=== PATIENT | male | born 1945 | race African-American/Black ===

== ENCOUNTER 2018-04-07 17:00 | Inpatient (IN) | payer BC, MEDICARE, OTHER ==
[~2018-04-07] VITALS: Ht 172.7 cm; Wt 65.0 kg
[2018-04-07] MEDS ORDERED: IV NORMAL SALINE 1000ML BAG 1,000 ML IV SCH (17:25)
[2018-04-07 17:38] LABS: BASO % 1 % (0-3); EOS % 0 % (0-3); HEMATOCRIT 35.2 % (39.0-53.0); HEMOGLOBIN 12.2 g/dL (13.0-17.5); LYMPH # 1.3 x10^3/uL (1.0-4.8); LYMPH % 27 % (24-48); MEAN CORPUSCULAR HEMOGLOBIN 30 pg (25-35); MEAN CORPUSCULAR HGB CONC 35 g/dL (31-37); MEAN CORPUSCULAR VOLUME 88 fL (79-100); MONO # 0.3 x10^3/uL (0.0-1.1); MONO % 6 % (0-9); NEUT # 3.1 x10^3uL (1.8-7.7); NEUT % 66 % (31-73); PLATELET COUNT 277 x10^3/uL (140-400); RED BLOOD COUNT 4.02 x10^6/uL (4.30-5.70); RED CELL DISTRIBUTION WIDTH 15.2 % (11.5-14.5); WHITE BLOOD COUNT 4.7 x10^3/uL (4.0-11.0)
--- NOTE | 2018-04-07 17:53 | PHYS DOC ---
Past Medical History Past Medical History: Dementia, Other Additional Past Medical Histor: pt poor historian Past Surgical History: Tonsillectomy, Other Additional Past Surgical Histo: pt poor historian Alcohol Use: None Drug Use: None Adult General Chief Complaint Chief Complaint: ALTERED MENTAL STATUS HPI HPI Patient is a 72-year-old male who presents to the emergency department for evaluation. EMS was called because the patient's caregiver and family reportedly was able to care for the patient at home anymore, due to his dementia and reported episodes of altered mental status. The patient's blood sugar was also reported to be over 400 by EMS. The patient himself denies any complaints. He is oriented to person, but disoriented to place and time. He answers most questions with confabulation. He denies any pain, does not have any evidence of recent trauma or focal neurologic deficit. He is able to move all extremities. There are no alleviating or exacerbating factors to his symptoms. Review of Systems Review of Systems Unable to obtain review of systems secondary to dementia Current Medications Current Medications Current Medications Medications (Trade) Dose Ordered Sig/Constance Start Time Stop Time Status Last Admin Dose Admin Sodium Chloride 1,000 ml @ 1,000 mls/hr Q1H 04/07/18 17:25 04/07/18 18:24 Allergies Allergies Allergies Coded Allergies Type Severity Reaction Last Updated Verified No Known Drug Allergies 04/07/18 No Physical Exam Physical Exam PHYSICAL EXAM: CONSTITUTIONAL: Well developed, well nourished HEAD: normocephalic, atraumatic EENT: PERRL, EOMI. Conjunctivae normal color, sclerae non-icteric; mildly dry mucous membranes. NECK: Supple, non-tender; no meningismus. LUNGS: Lungs CTA, breathing even and unlabored. Normal air movement. HEART: Regular rate and rhythm, no murmur CHEST: No deformity; non-tender ABDOMEN: The abdomen is soft, and non-tender, no masses or bruits. EXTREM: Normal ROM; no deformity, no calf tenderness. Normal pulses palpable in all extremities. There is no pedal edema. SKIN: No rash; no diaphoresis NEURO: Alert; normal speech, impaired cognition consistent with underlying dementia, patient moves all extremities. Current Patient Data Vital Signs Vital Signs Date Time Temp Pulse Resp B/P (MAP) Pulse Ox O2 Delivery O2 Flow Rate FiO2 10/23/18 17:08 98.6 68 20 173/77 (109) 100 98.6 Lab Values Laboratory Tests Test 04/07/18 17:10 White Blood Count 4.7 x10^3/uL (4.0-11.0) Red Blood Count 4.02 x10^6/uL (4.30-5.70) L Hemoglobin 12.2 g/dL (13.0-17.5) L Hematocrit 35.2 % (39.0-53.0) L Mean Corpuscular Volume 88 fL (79-100) Mean Corpuscular Hemoglobin 30 pg (25-35) Mean Corpuscular Hemoglobin Concent 35 g/dL (31-37) Red Cell Distribution Width 15.2 % (11.5-14.5) H Platelet Count 277 x10^3/uL (140-400) Neutrophils (%) (Auto) 66 % (31-73) Lymphocytes (%) (Auto) 27 % (24-48) Monocytes (%) (Auto) 6 % (0-9) Eosinophils (%) (Auto) 0 % (0-3) Basophils (%) (Auto) 1 % (0-3) Neutrophils # (Auto) 3.1 x10^3uL (1.8-7.7) Lymphocytes # (Auto) 1.3 x10^3/uL (1.0-4.8) Monocytes # (Auto) 0.3 x10^3/uL (0.0-1.1) Eosinophils # (Auto) 0.0 x10^3/uL (0.0-0.7) Basophils # (Auto) 0.0 x10^3/uL (0.0-0.2) Sodium Level 138 mmol/L (136-145) Potassium Level 4.6 mmol/L (3.5-5.1) Chloride Level 102 mmol/L (98-107) Carbon Dioxide Level 25 mmol/L (21-32) Anion Gap 11 (6-14) Blood Urea Nitrogen 36 mg/dL (8-26) H Creatinine 2.2 mg/dL (0.7-1.3) H Estimated GFR (Cockcroft-Gault) 29.5 BUN/Creatinine Ratio 16 (6-20) Glucose Level 475 mg/dL (70-99) H Calcium Level 10.1 mg/dL (8.5-10.1) Total Bilirubin Pending Aspartate Amino Transferase (AST) Pending Alanine Aminotransferase (ALT) Pending Alkaline Phosphatase Pending Total Protein Pending Albumin Pending Albumin/Globulin Ratio Pending Acetone Level Pending Laboratory Tests 04/07/18 17:10 Laboratory Tests 04/07/18 17:10 EKG EKG [] Radiology/Procedures Radiology/Procedures [] Course & Med Decision Making Course & Med Decision Making Pertinent Labs and Imaging studies reviewed. (See chart for details) [6:00 PM: Patient's condition remained stable. His creatinine is noted to be elevated as is his blood sugar. I do not have any old labs for comparison. The patient be admitted to the hospitalist. Dragon Disclaimer Dragon Disclaimer This electronic medical record was generated, in whole or in part, using a voice recognition dictation system. Departure Departure Impression: Primary Impression: Dementia Additional Impressions: Hyperglycemia Renal failure Disposition: ADMITTED INPATIENT Admitting Physician: Fuad Junior Condition: STABLE Problem Qualifiers TRACY IBRAHIM MD Apr 07, 2018 17:53
[2018-04-07 17:55] LABS: ANION GAP 11 (6-14); BLOOD UREA NITROGEN 36 mg/dL (8-26); BUN/CREATININE RATIO 16 (6-20); CALCIUM 10.1 mg/dL (8.5-10.1); CARBON DIOXIDE 25 mmol/L (21-32); CHLORIDE 102 mmol/L (98-107); CREATININE 2.2 mg/dL (0.7-1.3); GFR 29.5; GLUCOSE 475 mg/dL (70-99); POTASSIUM 4.6 mmol/L (3.5-5.1); SODIUM 138 mmol/L (136-145)
[2018-04-07 18:02] LABS: ALBUMIN 3.9 g/dL (3.4-5.0); ALK PHOS 118 U/L (46-116); ALT (SGPT) 24 U/L (16-63); AST (SGOT) 13 U/L (15-37); TOTAL BILIRUBIN 0.7 mg/dL (0.2-1.0); TOTAL PROTEIN 7.7 g/dL (6.4-8.2)
[2018-04-07 18:03] LABS: ACETONE NEG (NEG)
--- NOTE | 2018-04-07 18:10 | PDOC1 ---
History and Physical Date of Admission Date of Admission DATE: 04/07/18 TIME: 18:10 Identification/Chief Complaint Chief Complaint seen in er 72-year-old male who presents , EMS was called because the patient's caregiver and family reportedly was able to care for the patient at home. due to his dementia and reported episodes of altered mental status. blood sugar was also reported to be over 400 by EMS. The patient himself denies any complaints. disoriented to place and time. He answers most questions with confabulation. He denies any pain, does not have any evidence of recent trauma or focal neurologic deficit. He is able to move all extremities. There are no alleviating or exacerbating factors to his symptoms. he is up ambulatory, confused in er room and needs a sitter, high fall risk Past Medical History Past Medical History Past Medical History: Dementia, Other Additional Past Medical Histor: pt poor historian, diabetes Past Surgical History: Tonsillectomy, Other Additional Past Surgical Histo: pt poor historian Alcohol Use: None Drug Use: None lives with girlfriend, she has been unable to care for him due to inc confusion Cardiovascular: Hyperlipidemia Renal/: No pertinent hx Endocrine: Diabetes Family History Family History: Hypertension Family History: Parent Social History Smoke: No ALCOHOL: none Drugs: None Current Problem List Problem List Problems Medical Problems: (1) Dementia Status: Acute (2) Hyperglycemia Status: Acute (3) Renal failure Status: Acute Current Medications Current Medications Current Medications Sodium Chloride 1,000 ml @ 1,000 mls/hr Q1H IV ; Start 04/07/18 at 17:25; Stop 04/07/18 at 18:24 Allergies Allergies: Coded Allergies: No Known Drug Allergies (Unverified , 04/07/18) ROS Review of System 14 pt ros otherwise neg General: No: Chills, Night Sweats, Fatigue, Malaise, Appetite, Other PSYCHOLOGICAL ROS: YES: Concentration difficultie Eyes: No Blurry vision, No Decreased vision, No Double vision, No Dry eyes, No Excessive tearing, No Eye Pain, No Itchy Eyes, No Loss of vision, No Photophobia , No Scotomata, No Uses contacts, No Uses glasses, No Other HEENT: No: Heacaches, Visual Changes, Hearing change, Nasal congestion, Nasal discharge, Oral lesions, Sinus pain, Sore Throat, Epistaxis, Sneezing, Snoring, Tinnitus, Vertigo, Vocal changes, Other ENDOCRINE: No: Breast Changes, Galactorrhea, Hair Pattern Changes, Hot Flashes , Malaise/lethargy, Mood Swings, Palpitations, Polydipsia/polyuria, Skin Changes , Temperature Intolerance, Unexpected Weight Changes, Other Respiratory: No: Cough, Hemoptysis, Orthopnea, Pleuritic Pain, Shortness of breath, SOB with excertion, Sputum Changes, Stridor, Tachypnea, Wheezing, Other Cardiovascular: No Chest Pain, No Palpitations, No Orthopnea, No Paroxysmal Noc. Dyspnea, No Edema, No Lt Headedness, No Other Gastrointestinal: No Nausea, No Vomiting, No Abdominal Pain, No Diarrhea, No Constipation, No Melena, No Hematochezia, No Other Genitourinary: YES Incontinence Neurological: Yes Behavorial Changes, Yes Confusion, Yes Gait Disturbance Skin: Yes Dry Skin Physical Exam Physical Exam Physical Exam Physical Exam PHYSICAL EXAM: CONSTITUTIONAL: Well developed, well nourished HEAD: normocephalic, atraumatic EENT: PERRL, EOMI. Conjunctivae normal color, sclerae non-icteric; dry mucous membranes. NECK: Supple, non-tender; no meningismus. LUNGS: Lungs CTA, breathing even and unlabored. Normal air movement. HEART: Regular rate and rhythm, no murmur CHEST: No deformity; non-tender ABDOMEN: The abdomen is soft, and non-tender, no masses or bruits. EXTREM: Normal ROM; no deformity, no calf tenderness. Normal pulses palpable in all extremities. There is no pedal edema. SKIN: No rash; no diaphoresis NEURO: Alert; normal speech, impaired cognition consistent with underlying dementia, patient moves all extremities gait looks unsteady. General: Alert, Cooperative, mild distress HEENT: Atraumatic Heart: S1S2 Breasts: Not examined Abdomen: Soft Rectal Exam: not examined Neuro: Cranial nerves 3-12 NL Vitals Vitals Vital Signs Date Time Temp Pulse Resp B/P (MAP) Pulse Ox O2 Delivery O2 Flow Rate FiO2 04/07/18 17:08 98.6 68 20 173/77 (109) 100 98.6 Labs Labs Laboratory Tests Test 04/07/18 17:10 White Blood Count 4.7 x10^3/uL (4.0-11.0) Red Blood Count 4.02 x10^6/uL (4.30-5.70) Hemoglobin 12.2 g/dL (13.0-17.5) Hematocrit 35.2 % (39.0-53.0) Mean Corpuscular Volume 88 fL (79-100) Mean Corpuscular Hemoglobin 30 pg (25-35) Mean Corpuscular Hemoglobin Concent 35 g/dL (31-37) Red Cell Distribution Width 15.2 % (11.5-14.5) Platelet Count 277 x10^3/uL (140-400) Neutrophils (%) (Auto) 66 % (31-73) Lymphocytes (%) (Auto) 27 % (24-48) Monocytes (%) (Auto) 6 % (0-9) Eosinophils (%) (Auto) 0 % (0-3) Basophils (%) (Auto) 1 % (0-3) Neutrophils # (Auto) 3.1 x10^3uL (1.8-7.7) Lymphocytes # (Auto) 1.3 x10^3/uL (1.0-4.8) Monocytes # (Auto) 0.3 x10^3/uL (0.0-1.1) Eosinophils # (Auto) 0.0 x10^3/uL (0.0-0.7) Basophils # (Auto) 0.0 x10^3/uL (0.0-0.2) Sodium Level 138 mmol/L (136-145) Potassium Level 4.6 mmol/L (3.5-5.1) Chloride Level 102 mmol/L (98-107) Carbon Dioxide Level 25 mmol/L (21-32) Anion Gap 11 (6-14) Blood Urea Nitrogen 36 mg/dL (8-26) Creatinine 2.2 mg/dL (0.7-1.3) Estimated GFR (Cockcroft-Gault) 29.5 BUN/Creatinine Ratio 16 (6-20) Glucose Level 475 mg/dL (70-99) Calcium Level 10.1 mg/dL (8.5-10.1) Total Bilirubin 0.7 mg/dL (0.2-1.0) Aspartate Amino Transf (AST/SGOT) 13 U/L (15-37) Alanine Aminotransferase (ALT/SGPT) 24 U/L (16-63) Alkaline Phosphatase 118 U/L (46-116) Troponin I Quantitative < 0.017 ng/mL (0.000-0.055) NL-Izd-A-Type Natriuretic Peptide 250 pg/mL (0-124) Total Protein 7.7 g/dL (6.4-8.2) Albumin 3.9 g/dL (3.4-5.0) Albumin/Globulin Ratio 1.0 (1.0-1.7) Acetone Level Neg (NEG) Laboratory Tests Test 04/07/18 17:10 White Blood Count 4.7 x10^3/uL (4.0-11.0) Red Blood Count 4.02 x10^6/uL (4.30-5.70) Hemoglobin 12.2 g/dL (13.0-17.5) Hematocrit 35.2 % (39.0-53.0) Mean Corpuscular Volume 88 fL (79-100) Mean Corpuscular Hemoglobin 30 pg (25-35) Mean Corpuscular Hemoglobin Concent 35 g/dL (31-37) Red Cell Distribution Width 15.2 % (11.5-14.5) Platelet Count 277 x10^3/uL (140-400) Neutrophils (%) (Auto) 66 % (31-73) Lymphocytes (%) (Auto) 27 % (24-48) Monocytes (%) (Auto) 6 % (0-9) Eosinophils (%) (Auto) 0 % (0-3) Basophils (%) (Auto) 1 % (0-3) Neutrophils # (Auto) 3.1 x10^3uL (1.8-7.7) Lymphocytes # (Auto) 1.3 x10^3/uL (1.0-4.8) Monocytes # (Auto) 0.3 x10^3/uL (0.0-1.1) Eosinophils # (Auto) 0.0 x10^3/uL (0.0-0.7) Basophils # (Auto) 0.0 x10^3/uL (0.0-0.2) Sodium Level 138 mmol/L (136-145) Potassium Level 4.6 mmol/L (3.5-5.1) Chloride Level 102 mmol/L (98-107) Carbon Dioxide Level 25 mmol/L (21-32) Anion Gap 11 (6-14) Blood Urea Nitrogen 36 mg/dL (8-26) Creatinine 2.2 mg/dL (0.7-1.3) Estimated GFR (Cockcroft-Gault) 29.5 BUN/Creatinine Ratio 16 (6-20) Glucose Level 475 mg/dL (70-99) Calcium Level 10.1 mg/dL (8.5-10.1) Total Bilirubin 0.7 mg/dL (0.2-1.0) Aspartate Amino Transf (AST/SGOT) 13 U/L (15-37) Alanine Aminotransferase (ALT/SGPT) 24 U/L (16-63) Alkaline Phosphatase 118 U/L (46-116) Troponin I Quantitative < 0.017 ng/mL (0.000-0.055) OT-Bwl-Q-Type Natriuretic Peptide 250 pg/mL (0-124) Total Protein 7.7 g/dL (6.4-8.2) Albumin 3.9 g/dL (3.4-5.0) Albumin/Globulin Ratio 1.0 (1.0-1.7) Acetone Level Neg (NEG) VTE Prophylaxis Ordered VTE Prophylaxis Devices: Yes VTE Pharmacological Prophylaxi: Yes Assessment/Plan Assessment/Plan impression 1. advanced dementia 2. uncontrolled diabetes, unsure of duration of dx 3. high fall risk 4. gait instability 5, severe self care deficits 6. acute renal failure 7. uncontrolled hypertension plan iv enalapril lisinopril 5mg po bid tele admit ss insulin sitter neurology consult ct head a1c sq lovenox CINDY RUSSELL MD Apr 07, 2018 18:10
[2018-04-07] MEDS ORDERED: DEXTROSE 50% 25 GM / 50ML DISP.SYRIN. IV PRN (18:30)
[2018-04-07] MEDS ORDERED: ENALAPRILAT 1.25 MG/ML VIAL. IVP PRN (18:45)
[2018-04-07] MEDS ORDERED: MULTIVIT INFUSN,ADULT 4,VIT K 10 ML, THIAMINE INJ 100 MG, FOLIC ACID INJ 1 MG in IV NOR... IV ONE (19:00)
[2018-04-07] MEDS ORDERED: LISINOPRIL 10 MG TABLET PO SCH (19:00)
--- NOTE | 2018-04-07 19:10 | RAD ---
CT HEAD INDICATION: confusion, no priors COMPARISON: None Available. Exposure: One or more of the following individualized dose reduction techniques were utilized for this examination: 1. Automated exposure control 2. Adjustment of the mA and/or kV according to patient size 3. Use of iterative reconstruction technique TECHNIQUE: 5 mm contiguous axial images were obtained from the skull base to the vertex in both bone and soft tissue algorithm. FINDINGS: Mild bilateral periventricular white matter hypodensities likely chronic small vessel ischemic disease. No evidence of acute intracranial hemorrhage. No extra-axial fluid collections. No mass effect or midline shift. Ventricular size is appropriate. Basal cisterns are patent. No fractures identified.Crowe-white differentiation is preserved.Globes and orbits are within normal limits. Paranasal sinuses and mastoid air cells are clear. IMPRESSION: No acute intracranial findings. Electronically signed by: Fransisco Dougherty MD (04/07/2018 7:08 PM) [id number]
[2018-04-07 19:23] LABS: BILIRUBIN,URINE NEGATIVE (NEG); CLARITY,URINE CLEAR; COLOR,URINE YELLOW; NITRITE,URINE NEGATIVE (NEG); PROTEIN,URINE NEGATIVE (NEG-TRACE); UROBILINOGEN,URINE 0.2 mg/dL (0.2 mg/dL)
[2018-04-07 19:28] LABS: BACTERIA,URINE 0 /HPF (0-FEW); HYALINE CASTS, URINE FEW /HPF; RBC,URINE 0 /HPF (0-2); WBC,URINE 0 /HPF (0-4)
[2018-04-07] MEDS ORDERED: INSULIN LISPRO 300 UNITS/3 ML INSULN.PEN. SQ ONE (20:00)
[2018-04-07 21:00] VITALS: BP 168/78
[2018-04-07] MEDS ORDERED: ENOXAPARIN 30 MG/0.3 ML SYRINGE. SQ SCH (21:00)
[2018-04-07 22:30] VITALS: BP 160/82
[2018-04-07 23:25] LABS: BARBITURATES NEG (NEG); BENZODIAZEPINES NEG (NEG); CANNABINOIDS NEG (NEG); COCAINE NEG (NEG); METHADONE NEG (NEG); OPIATES NEG (NEG); PHENCYCLIDINE NEG (NEG)
[2018-04-07 23:26] LABS: AMPHETAMINE/METHAMPHETAMINE NEG (NEG)
[2018-04-08 02:34] VITALS: BP 157/81
--- NOTE | 2018-04-08 06:18 | EKG ---
[facility] [address] [place] [id number] Test Date: 2018-04-07 Test Time: 18:38:42 Pat Name: YODIT BELTRAN Department: Room: 530 1 Gender: M [facility] Nurse: : 1945 Requested By: TRACY IBRAHIM Order Number: [id number] Reading MD: Raciel Varghese Measurements Intervals [place] Rate: 74 P: 38 TX: 154 QRS: -34 QRSD: 82 T: 56 QT: 366 QTc: 407 Interpretive Statements SINUS RHYTHM ABNORMAL LEFT AXIS DEVIATION LEFT ANTERIOR FASCICULAR BLOCK ABNORMAL ECG RI6.01 No previous ECG available for comparison Electronically Signed On 04-09-2018 11:25:03 CDT by Raciel Varghese
[2018-04-08 07:03] VITALS: BP 139/76
[2018-04-08] MEDS: INSULIN LISPRO 300 UNITS/3 ML INSULN.PEN. SQ SCH ×6 (08:00→17:30)
[2018-04-08 08:24] LABS: BASO # 0.1 x10^3/uL (0.0-0.2); BASO % 1 % (0-3); EOS # 0.1 x10^3/uL (0.0-0.7); EOS % 1 % (0-3); HEMOGLOBIN 12.2 g/dL (13.0-17.5); LYMPH # 2.1 x10^3/uL (1.0-4.8); LYMPH % 41 % (24-48); MEAN CORPUSCULAR HEMOGLOBIN 30 pg (25-35); MEAN CORPUSCULAR HGB CONC 35 g/dL (31-37); MEAN CORPUSCULAR VOLUME 87 fL (79-100); MONO # 0.3 x10^3/uL (0.0-1.1); MONO % 6 % (0-9); NEUT # 2.5 x10^3uL (1.8-7.7); NEUT % 50 % (31-73); PLATELET COUNT 253 x10^3/uL (140-400); RED BLOOD COUNT 4.04 x10^6/uL (4.30-5.70)
--- NOTE | 2018-04-08 08:26 | RAD ---
Portable chest, 04/07/2018: HISTORY: Altered mental status, hypertension The heart size and pulmonary vascularity are normal. No pulmonary infiltrate is seen. There is no evidence of pleural fluid. Moderate hypertrophic spurring is present in the spine. IMPRESSION: No acute cardiopulmonary abnormality is detected. Electronically signed by: Lui Padron MD (04/08/2018 8:23 AM) [facility]
[2018-04-08 08:35] LABS: CALCIUM 8.9 mg/dL (8.5-10.1); CREATININE 1.4 mg/dL (0.7-1.3); GFR 60.1; POTASSIUM 3.9 mmol/L (3.5-5.1)
--- NOTE | 2018-04-08 10:34 | PDOC ---
PROGRESS NOTES History of Present Illness History of Present Illness Assessment/Plan Assessment/Plan impression 1. advanced dementia 2. uncontrolled diabetes, unsure of duration of dx 3. high fall risk 4. gait instability 5, severe self care deficits 6. acute renal failure 7. uncontrolled hypertension 8. abnormal weight loss of 100# in 12 months by SO hx in room today 9. dehydration plan iv enalapril lisinopril 5mg po bid tele admit ss insulin sitter neurology consult iv fluid support ct head noted a1c sq lovenox Vitals Vitals Vital Signs Date Time Temp Pulse Resp B/P (MAP) Pulse Ox O2 Delivery O2 Flow Rate FiO2 04/08/18 08:00 Room Air 04/08/18 07:03 97.9 58 18 139/76 (97) 100 97.9 Physical Exam Physical Exam EENT: PERRL, EOMI. Conjunctivae normal color, sclerae non-icteric; dry mucous membranes. NECK: Supple, non-tender; no meningismus. LUNGS: Lungs CTA, breathing even and unlabored. Normal air movement. HEART: Regular rate and rhythm, no murmur CHEST: No deformity; non-tender ABDOMEN: The abdomen is soft, and non-tender, no masses or bruits. EXTREM: Normal ROM; no deformity, no calf tenderness. Normal pulses palpable in all extremities. There is no pedal edema. SKIN: No rash; no diaphoresis NEURO: Alert; normal speech, impaired cognition consistent with underlying dementia, patient moves all extremities gait looks unsteady. General: Alert, Cooperative, mild distress HEENT: Atraumatic Heart: S1S2 Breasts: Not examined Abdomen: Soft Rectal Exam: not examined Neuro: Cranial nerves 3-12 NL General: Cooperative, mild distress Heart: Regular rate, No murmurs Lungs: Clear Abdomen: Normal bowel sounds, Soft, No tenderness, No hepatosplenomegaly Extremities: No clubbing, No cyanosis Labs LABS CT HEAD INDICATION: confusion, no priors COMPARISON: None Available. Exposure: One or more of the following individualized dose reduction techniques were utilized for this examination: 1. Automated exposure control 2. Adjustment of the mA and/or kV according to patient size 3. Use of iterative reconstruction technique TECHNIQUE: 5 mm contiguous axial images were obtained from the skull base to the vertex in both bone and soft tissue algorithm. FINDINGS: Mild bilateral periventricular white matter hypodensities likely chronic small vessel ischemic disease. No evidence of acute intracranial hemorrhage. No extra-axial fluid collections. No mass effect or midline shift. Ventricular size is appropriate. Basal cisterns are patent. No fractures identified.Crowe-white differentiation is preserved.Globes and orbits are within normal limits. Paranasal sinuses and mastoid air cells are clear. IMPRESSION: No acute intracranial findings. Electronically signed by: Fransisco Dougherty MD (04/07/2018 7:08 PM) [facility] Laboratory Tests Test 04/07/18 17:10 04/07/18 19:16 04/07/18 20:42 04/07/18 21:48 White Blood Count 4.7 x10^3/uL (4.0-11.0) Red Blood Count 4.02 x10^6/uL (4.30-5.70) Hemoglobin 12.2 g/dL (13.0-17.5) Hematocrit 35.2 % (39.0-53.0) Mean Corpuscular Volume 88 fL (79-100) Mean Corpuscular Hemoglobin 30 pg (25-35) Mean Corpuscular Hemoglobin Concent 35 g/dL (31-37) Red Cell Distribution Width 15.2 % (11.5-14.5) Platelet Count 277 x10^3/uL (140-400) Neutrophils (%) (Auto) 66 % (31-73) Lymphocytes (%) (Auto) 27 % (24-48) Monocytes (%) (Auto) 6 % (0-9) Eosinophils (%) (Auto) 0 % (0-3) Basophils (%) (Auto) 1 % (0-3) Neutrophils # (Auto) 3.1 x10^3uL (1.8-7.7) Lymphocytes # (Auto) 1.3 x10^3/uL (1.0-4.8) Monocytes # (Auto) 0.3 x10^3/uL (0.0-1.1) Eosinophils # (Auto) 0.0 x10^3/uL (0.0-0.7) Basophils # (Auto) 0.0 x10^3/uL (0.0-0.2) Sodium Level 138 mmol/L (136-145) Potassium Level 4.6 mmol/L (3.5-5.1) Chloride Level 102 mmol/L (98-107) Carbon Dioxide Level 25 mmol/L (21-32) Anion Gap 11 (6-14) Blood Urea Nitrogen 36 mg/dL (8-26) Creatinine 2.2 mg/dL (0.7-1.3) Estimated GFR (Cockcroft-Gault) 29.5 BUN/Creatinine Ratio 16 (6-20) Glucose Level 475 mg/dL (70-99) Calcium Level 10.1 mg/dL (8.5-10.1) Total Bilirubin 0.7 mg/dL (0.2-1.0) Aspartate Amino Transf (AST/SGOT) 13 U/L (15-37) Alanine Aminotransferase (ALT/SGPT) 24 U/L (16-63) Alkaline Phosphatase 118 U/L (46-116) Troponin I Quantitative < 0.017 ng/mL (0.000-0.055) QT-Ohi-N-Type Natriuretic Peptide 250 pg/mL (0-124) Total Protein 7.7 g/dL (6.4-8.2) Albumin 3.9 g/dL (3.4-5.0) Albumin/Globulin Ratio 1.0 (1.0-1.7) 25-Hydroxy Vitamin D Total 30.3 ng/mL (30-100) Thyroid Stimulating Hormone (TSH) 1.434 uIU/mL (0.358-3.74) Free Thyroxine 1.23 ng/dL (0.76-1.46) Acetone Level Neg (NEG) Urine Collection Type Unknown Urine Color Yellow Urine Clarity Clear Urine pH 5.0 Urine Specific [place] >=1.030 Urine Protein Negative mg/dL (NEG-TRACE) Urine Glucose (UA) >=1000 mg/dL (NEG) Urine Ketones (Stick) Trace mg/dL (NEG) Urine Blood Negative (NEG) Urine Nitrite Negative (NEG) Urine Bilirubin Negative (NEG) Urine Urobilinogen Dipstick 0.2 mg/dL (0.2 mg/dL) Urine Leukocyte Esterase Negative (NEG) Urine RBC 0 /HPF (0-2) Urine WBC 0 /HPF (0-4) Urine Bacteria 0 /HPF (0-FEW) Urine Hyaline Casts Few /HPF Urine Mucus Slight /LPF Urine Opiates Screen Neg (NEG) Urine Methadone Screen Neg (NEG) Urine Barbiturates Neg (NEG) Urine Phencyclidine Screen Neg (NEG) Urine Amphetamine/Methamphetamine Neg (NEG) Urine Benzodiazepines Screen Neg (NEG) Urine Cocaine Screen Neg (NEG) Urine Cannabinoids Screen Neg (NEG) Urine Ethyl Alcohol Neg (NEG) Glucose (Fingerstick) 370 mg/dL (70-99) 287 mg/dL (70-99) Test 04/08/18 07:40 04/08/18 07:59 White Blood Count 5.0 x10^3/uL (4.0-11.0) Red Blood Count 4.04 x10^6/uL (4.30-5.70) Hemoglobin 12.2 g/dL (13.0-17.5) Hematocrit 35.0 % (39.0-53.0) Mean Corpuscular Volume 87 fL (79-100) Mean Corpuscular Hemoglobin 30 pg (25-35) Mean Corpuscular Hemoglobin Concent 35 g/dL (31-37) Red Cell Distribution Width 15.0 % (11.5-14.5) Platelet Count 253 x10^3/uL (140-400) Neutrophils (%) (Auto) 50 % (31-73) Lymphocytes (%) (Auto) 41 % (24-48) Monocytes (%) (Auto) 6 % (0-9) Eosinophils (%) (Auto) 1 % (0-3) Basophils (%) (Auto) 1 % (0-3) Neutrophils # (Auto) 2.5 x10^3uL (1.8-7.7) Lymphocytes # (Auto) 2.1 x10^3/uL (1.0-4.8) Monocytes # (Auto) 0.3 x10^3/uL (0.0-1.1) Eosinophils # (Auto) 0.1 x10^3/uL (0.0-0.7) Basophils # (Auto) 0.1 x10^3/uL (0.0-0.2) Sodium Level 141 mmol/L (136-145) Potassium Level 3.9 mmol/L (3.5-5.1) Chloride Level 106 mmol/L (98-107) Carbon Dioxide Level 25 mmol/L (21-32) Anion Gap 10 (6-14) Blood Urea Nitrogen 22 mg/dL (8-26) Creatinine 1.4 mg/dL (0.7-1.3) Estimated GFR (Cockcroft-Gault) 60.1 Glucose Level 226 mg/dL (70-99) Calcium Level 8.9 mg/dL (8.5-10.1) Glucose (Fingerstick) 203 mg/dL (70-99) Assessment and Plan Assessmemt and Plan Problems Medical Problems: (1) Dementia Status: Acute (2) Hyperglycemia Status: Acute (3) Renal failure Status: Acute Comment Review of Relevant I have reviewed the following items radha (where applicable) has been applied. Labs Laboratory Tests Test 04/07/18 17:10 04/07/18 19:16 04/07/18 20:42 04/07/18 21:48 White Blood Count 4.7 x10^3/uL (4.0-11.0) Red Blood Count 4.02 x10^6/uL (4.30-5.70) Hemoglobin 12.2 g/dL (13.0-17.5) Hematocrit 35.2 % (39.0-53.0) Mean Corpuscular Volume 88 fL (79-100) Mean Corpuscular Hemoglobin 30 pg (25-35) Mean Corpuscular Hemoglobin Concent 35 g/dL (31-37) Red Cell Distribution Width 15.2 % (11.5-14.5) Platelet Count 277 x10^3/uL (140-400) Neutrophils (%) (Auto) 66 % (31-73) Lymphocytes (%) (Auto) 27 % (24-48) Monocytes (%) (Auto) 6 % (0-9) Eosinophils (%) (Auto) 0 % (0-3) Basophils (%) (Auto) 1 % (0-3) Neutrophils # (Auto) 3.1 x10^3uL (1.8-7.7) Lymphocytes # (Auto) 1.3 x10^3/uL (1.0-4.8) Monocytes # (Auto) 0.3 x10^3/uL (0.0-1.1) Eosinophils # (Auto) 0.0 x10^3/uL (0.0-0.7) Basophils # (Auto) 0.0 x10^3/uL (0.0-0.2) Sodium Level 138 mmol/L (136-145) Potassium Level 4.6 mmol/L (3.5-5.1) Chloride Level 102 mmol/L (98-107) Carbon Dioxide Level 25 mmol/L (21-32) Anion Gap 11 (6-14) Blood Urea Nitrogen 36 mg/dL (8-26) Creatinine 2.2 mg/dL (0.7-1.3) Estimated GFR (Cockcroft-Gault) 29.5 BUN/Creatinine Ratio 16 (6-20) Glucose Level 475 mg/dL (70-99) Calcium Level 10.1 mg/dL (8.5-10.1) Total Bilirubin 0.7 mg/dL (0.2-1.0) Aspartate Amino Transf (AST/SGOT) 13 U/L (15-37) Alanine Aminotransferase (ALT/SGPT) 24 U/L (16-63) Alkaline Phosphatase 118 U/L (46-116) Troponin I Quantitative < 0.017 ng/mL (0.000-0.055) JY-Cxh-K-Type Natriuretic Peptide 250 pg/mL (0-124) Total Protein 7.7 g/dL (6.4-8.2) Albumin 3.9 g/dL (3.4-5.0) Albumin/Globulin Ratio 1.0 (1.0-1.7) 25-Hydroxy Vitamin D Total 30.3 ng/mL (30-100) Thyroid Stimulating Hormone (TSH) 1.434 uIU/mL (0.358-3.74) Free Thyroxine 1.23 ng/dL (0.76-1.46) Acetone Level Neg (NEG) Urine Collection Type Unknown Urine Color Yellow Urine Clarity Clear Urine pH 5.0 Urine Specific [place] >=1.030 Urine Protein Negative mg/dL (NEG-TRACE) Urine Glucose (UA) >=1000 mg/dL (NEG) Urine Ketones (Stick) Trace mg/dL (NEG) Urine Blood Negative (NEG) Urine Nitrite Negative (NEG) Urine Bilirubin Negative (NEG) Urine Urobilinogen Dipstick 0.2 mg/dL (0.2 mg/dL) Urine Leukocyte Esterase Negative (NEG) Urine RBC 0 /HPF (0-2) Urine WBC 0 /HPF (0-4) Urine Bacteria 0 /HPF (0-FEW) Urine Hyaline Casts Few /HPF Urine Mucus Slight /LPF Urine Opiates Screen Neg (NEG) Urine Methadone Screen Neg (NEG) Urine Barbiturates Neg (NEG) Urine Phencyclidine Screen Neg (NEG) Urine Amphetamine/Methamphetamine Neg (NEG) Urine Benzodiazepines Screen Neg (NEG) Urine Cocaine Screen Neg (NEG) Urine Cannabinoids Screen Neg (NEG) Urine Ethyl Alcohol Neg (NEG) Glucose (Fingerstick) 370 mg/dL (70-99) 287 mg/dL (70-99) Test 04/08/18 07:40 04/08/18 07:59 White Blood Count 5.0 x10^3/uL (4.0-11.0) Red Blood Count 4.04 x10^6/uL (4.30-5.70) Hemoglobin 12.2 g/dL (13.0-17.5) Hematocrit 35.0 % (39.0-53.0) Mean Corpuscular Volume 87 fL (79-100) Mean Corpuscular Hemoglobin 30 pg (25-35) Mean Corpuscular Hemoglobin Concent 35 g/dL (31-37) Red Cell Distribution Width 15.0 % (11.5-14.5) Platelet Count 253 x10^3/uL (140-400) Neutrophils (%) (Auto) 50 % (31-73) Lymphocytes (%) (Auto) 41 % (24-48) Monocytes (%) (Auto) 6 % (0-9) Eosinophils (%) (Auto) 1 % (0-3) Basophils (%) (Auto) 1 % (0-3) Neutrophils # (Auto) 2.5 x10^3uL (1.8-7.7) Lymphocytes # (Auto) 2.1 x10^3/uL (1.0-4.8) Monocytes # (Auto) 0.3 x10^3/uL (0.0-1.1) Eosinophils # (Auto) 0.1 x10^3/uL (0.0-0.7) Basophils # (Auto) 0.1 x10^3/uL (0.0-0.2) Sodium Level 141 mmol/L (136-145) Potassium Level 3.9 mmol/L (3.5-5.1) Chloride Level 106 mmol/L (98-107) Carbon Dioxide Level 25 mmol/L (21-32) Anion Gap 10 (6-14) Blood Urea Nitrogen 22 mg/dL (8-26) Creatinine 1.4 mg/dL (0.7-1.3) Estimated GFR (Cockcroft-Gault) 60.1 Glucose Level 226 mg/dL (70-99) Calcium Level 8.9 mg/dL (8.5-10.1) Glucose (Fingerstick) 203 mg/dL (70-99) Laboratory Tests Test 04/07/18 17:10 04/07/18 19:16 04/07/18 20:42 04/07/18 21:48 White Blood Count 4.7 x10^3/uL (4.0-11.0) Red Blood Count 4.02 x10^6/uL (4.30-5.70) Hemoglobin 12.2 g/dL (13.0-17.5) Hematocrit 35.2 % (39.0-53.0) Mean Corpuscular Volume 88 fL (79-100) Mean Corpuscular Hemoglobin 30 pg (25-35) Mean Corpuscular Hemoglobin Concent 35 g/dL (31-37) Red Cell Distribution Width 15.2 % (11.5-14.5) Platelet Count 277 x10^3/uL (140-400) Neutrophils (%) (Auto) 66 % (31-73) Lymphocytes (%) (Auto) 27 % (24-48) Monocytes (%) (Auto) 6 % (0-9) Eosinophils (%) (Auto) 0 % (0-3) Basophils (%) (Auto) 1 % (0-3) Neutrophils # (Auto) 3.1 x10^3uL (1.8-7.7) Lymphocytes # (Auto) 1.3 x10^3/uL (1.0-4.8) Monocytes # (Auto) 0.3 x10^3/uL (0.0-1.1) Eosinophils # (Auto) 0.0 x10^3/uL (0.0-0.7) Basophils # (Auto) 0.0 x10^3/uL (0.0-0.2) Sodium Level 138 mmol/L (136-145) Potassium Level 4.6 mmol/L (3.5-5.1) Chloride Level 102 mmol/L (98-107) Carbon Dioxide Level 25 mmol/L (21-32) Anion Gap 11 (6-14) Blood Urea Nitrogen 36 mg/dL (8-26) Creatinine 2.2 mg/dL (0.7-1.3) Estimated GFR (Cockcroft-Gault) 29.5 BUN/Creatinine Ratio 16 (6-20) Glucose Level 475 mg/dL (70-99) Calcium Level 10.1 mg/dL (8.5-10.1) Total Bilirubin 0.7 mg/dL (0.2-1.0) Aspartate Amino Transf (AST/SGOT) 13 U/L (15-37) Alanine Aminotransferase (ALT/SGPT) 24 U/L (16-63) Alkaline Phosphatase 118 U/L (46-116) Troponin I Quantitative < 0.017 ng/mL (0.000-0.055) PK-Qxy-T-Type Natriuretic Peptide 250 pg/mL (0-124) Total Protein 7.7 g/dL (6.4-8.2) Albumin 3.9 g/dL (3.4-5.0) Albumin/Globulin Ratio 1.0 (1.0-1.7) 25-Hydroxy Vitamin D Total 30.3 ng/mL (30-100) Thyroid Stimulating Hormone (TSH) 1.434 uIU/mL (0.358-3.74) Free Thyroxine 1.23 ng/dL (0.76-1.46) Acetone Level Neg (NEG) Urine Collection Type Unknown Urine Color Yellow Urine Clarity Clear Urine pH 5.0 Urine Specific [place] >=1.030 Urine Protein Negative mg/dL (NEG-TRACE) Urine Glucose (UA) >=1000 mg/dL (NEG) Urine Ketones (Stick) Trace mg/dL (NEG) Urine Blood Negative (NEG) Urine Nitrite Negative (NEG) Urine Bilirubin Negative (NEG) Urine Urobilinogen Dipstick 0.2 mg/dL (0.2 mg/dL) Urine Leukocyte Esterase Negative (NEG) Urine RBC 0 /HPF (0-2) Urine WBC 0 /HPF (0-4) Urine Bacteria 0 /HPF (0-FEW) Urine Hyaline Casts Few /HPF Urine Mucus Slight /LPF Urine Opiates Screen Neg (NEG) Urine Methadone Screen Neg (NEG) Urine Barbiturates Neg (NEG) Urine Phencyclidine Screen Neg (NEG) Urine Amphetamine/Methamphetamine Neg (NEG) Urine Benzodiazepines Screen Neg (NEG) Urine Cocaine Screen Neg (NEG) Urine Cannabinoids Screen Neg (NEG) Urine Ethyl Alcohol Neg (NEG) Glucose (Fingerstick) 370 mg/dL (70-99) 287 mg/dL (70-99) Test 04/08/18 07:40 04/08/18 07:59 White Blood Count 5.0 x10^3/uL (4.0-11.0) Red Blood Count 4.04 x10^6/uL (4.30-5.70) Hemoglobin 12.2 g/dL (13.0-17.5) Hematocrit 35.0 % (39.0-53.0) Mean Corpuscular Volume 87 fL (79-100) Mean Corpuscular Hemoglobin 30 pg (25-35) Mean Corpuscular Hemoglobin Concent 35 g/dL (31-37) Red Cell Distribution Width 15.0 % (11.5-14.5) Platelet Count 253 x10^3/uL (140-400) Neutrophils (%) (Auto) 50 % (31-73) Lymphocytes (%) (Auto) 41 % (24-48) Monocytes (%) (Auto) 6 % (0-9) Eosinophils (%) (Auto) 1 % (0-3) Basophils (%) (Auto) 1 % (0-3) Neutrophils # (Auto) 2.5 x10^3uL (1.8-7.7) Lymphocytes # (Auto) 2.1 x10^3/uL (1.0-4.8) Monocytes # (Auto) 0.3 x10^3/uL (0.0-1.1) Eosinophils # (Auto) 0.1 x10^3/uL (0.0-0.7) Basophils # (Auto) 0.1 x10^3/uL (0.0-0.2) Sodium Level 141 mmol/L (136-145) Potassium Level 3.9 mmol/L (3.5-5.1) Chloride Level 106 mmol/L (98-107) Carbon Dioxide Level 25 mmol/L (21-32) Anion Gap 10 (6-14) Blood Urea Nitrogen 22 mg/dL (8-26) Creatinine 1.4 mg/dL (0.7-1.3) Estimated GFR (Cockcroft-Gault) 60.1 Glucose Level 226 mg/dL (70-99) Calcium Level 8.9 mg/dL (8.5-10.1) Glucose (Fingerstick) 203 mg/dL (70-99) Medications Current Medications Sodium Chloride 1,000 ml @ 1,000 mls/hr Q1H IV Last administered on at 19:45; Start 04/07/18 at 17:25; Stop 04/07/18 at 18:24; Status DC Insulin Human Lispro (HumaLOG) 0-5 UNITS TIDWMEALS SQ ; Start 04/08/18 at 08:00 Dextrose (Dextrose 50%-Water Syringe) 12.5 gm PRN Q15MIN PRN IV SEE COMMENTS; Start 04/07/18 at 18:30 Enalaprilat (Vasotec Inj) 1.25 mg PRN Q6HRS PRN IVP ELEVATED BP, SEE COMMENTS; Start 04/07/18 at 18:45 Enoxaparin Sodium (Lovenox 30mg Syringe) 30 mg HS SQ Last administered on 04/07at 21:31; Start 04/07/18 at 21:00 Multivitamins 10 ml/Thiamine HCl 100 mg/Folic Acid 1 mg/Sodium Chloride 1,011.2 ml @ 80 mls/hr 1X ONCE IV Last administered on 04/07/18at 20:52; Start 04/07 at 19:00; Stop 04/08/18 at 07:38; Status DC Lisinopril (Prinivil) 10 mg DAILY07 PO ; Start 04/07/18 at 19:00; Stop at 20:31; Status DC Insulin Human Lispro (HumaLOG) 5 units 1X ONCE SQ Last administered on at 20:51; Start 04/07/18 at 20:00; Stop 04/07/18 at 20:01; Status DC Insulin Human Lispro (HumaLOG) 6 units TIDWMEALS SQ Last administered on at 08:29; Start 04/08/18 at 08:00 Vitals/I & O Vital Sign - Last 24 Hours 04/07/18 04/07/18 04/07/18 04/07/18 17:08 17:30 18:30 19:02 Temp 98.6 98.6 Pulse 68 64 84 74 Resp 20 16 16 16 B/P (MAP) 173/77 (109) Pulse Ox 100 100 100 100 04/07/18 04/07/18 04/07/18 10/24/18 20:00 21:00 22:30 02:34 Temp 98.5 98.1 97.9 98.5 98.1 97.9 Pulse 72 73 66 Resp 18 18 18 B/P (MAP) 168/78 (108) 160/82 (108) 157/81 (106) Pulse Ox 95 100 100 O2 Delivery Room Air Room Air Room Air Room Air 04/08/18 04/08/18 07:03 08:00 Temp 97.9 97.9 Pulse 58 Resp 18 B/P (MAP) 139/76 (97) Pulse Ox 100 O2 Delivery Room Air Room Air Intake and Output 04/07/18 04/07/18 04/08/18 15:00 23:00 07:00 Intake Total 200 ml Output Total 850 ml Balance -650 ml CINDY RUSSELL MD Apr 08, 2018 10:34
[2018-04-08 11:05] VITALS: BP 111/65
--- NOTE | 2018-04-08 12:09 | PDOC2 ---
CONSULT Date of Consult Date of Consult DATE: 04/08/18 TIME: 12:04 Reason for Consult Reason for Consult: KENNEDY Referring Physician Referring Physician: YVONNE Identification/Chief Complaint Chief Complaint CONFUSION Source Source: Chart review History of Present Illness Reason for Visit: THIS IS A 72 YR OLD BROUGHT IN BY FAMILY DUE TO CONFUSION AND WEAKNESS. POOR HISTORIAN DUE TO DEMENTIA. ON ADMIT CR IS 2.2. NO CKD NOTED ALSO NOTED TO HAVE A BG OF OVER 400. NO NEPHROTOXINS NOTED HOWEVER HE HAS BEEN ON LISINOPRIL. NO OTHER HX REPORTED. NO CKD NOTED Past Medical History Cardiovascular: HTN, Hyperlipidemia CENTRAL NERVOUS SYSTEM: Dementia GI: Constipation Renal/: No pertinent hx Endocrine: Diabetes Family History Family History: Hypertension Social History Social History: Parent No ALCOHOL: none Drugs: None Lives: Alone Current Problem List Problem List Problems Medical Problems: (1) Dementia Status: Acute (2) Hyperglycemia Status: Acute (3) Renal failure Status: Acute Current Medications Current Medications Current Medications Sodium Chloride 1,000 ml @ 1,000 mls/hr Q1H IV Last administered on at 19:45; Start 04/07/18 at 17:25; Stop 04/07/18 at 18:24; Status DC Insulin Human Lispro (HumaLOG) 0-5 UNITS TIDWMEALS SQ ; Start 04/08/18 at 08:00 Dextrose (Dextrose 50%-Water Syringe) 12.5 gm PRN Q15MIN PRN IV SEE COMMENTS; Start 04/07/18 at 18:30 Enalaprilat (Vasotec Inj) 1.25 mg PRN Q6HRS PRN IVP ELEVATED BP, SEE COMMENTS; Start 04/07/18 at 18:45 Enoxaparin Sodium (Lovenox 30mg Syringe) 30 mg HS SQ Last administered on 04/07at 21:31; Start 04/07/18 at 21:00 Multivitamins 10 ml/Thiamine HCl 100 mg/Folic Acid 1 mg/Sodium Chloride 1,011.2 ml @ 80 mls/hr 1X ONCE IV Last administered on 04/07/18at 20:52; Start 04/07 at 19:00; Stop 04/08/18 at 07:38; Status DC Lisinopril (Prinivil) 10 mg DAILY07 PO ; Start 04/07/18 at 19:00; Stop at 20:31; Status DC Insulin Human Lispro (HumaLOG) 5 units 1X ONCE SQ Last administered on at 20:51; Start 04/07/18 at 20:00; Stop 04/07/18 at 20:01; Status DC Insulin Human Lispro (HumaLOG) 6 units TIDWMEALS SQ Last administered on at 08:29; Start 04/08/18 at 08:00 Allergies Allergies: Coded Allergies: lisinopril (Verified Allergy, Mild, 04/07/18) ROS Review of System UNABLE TO OBTAINI Physical Exam General: Alert, Cooperative, No acute distress HEENT: Atraumatic, PERRLA, Other (DRY MUCOSA) Lungs: Clear to auscultation Heart: Regular rate Abdomen: Normal bowel sounds, No tenderness Extremities: No clubbing Skin: No breakdown Neuro: Other (NO ASYMMETRY) Psych/Mental Status: Other (CONFUSED) MUSCULOSKELETAL: No deformity, No swelling Vitals VITALS Vital Signs Date Time Temp Pulse Resp B/P (MAP) Pulse Ox O2 Delivery O2 Flow Rate FiO2 04/08/18 11:05 98.5 66 18 111/65 (80) 100 Room Air 98.5 Labs Labs Laboratory Tests Test 04/07/18 17:10 04/07/18 19:16 04/07/18 20:42 04/07/18 21:48 White Blood Count 4.7 x10^3/uL (4.0-11.0) Red Blood Count 4.02 x10^6/uL (4.30-5.70) Hemoglobin 12.2 g/dL (13.0-17.5) Hematocrit 35.2 % (39.0-53.0) Mean Corpuscular Volume 88 fL (79-100) Mean Corpuscular Hemoglobin 30 pg (25-35) Mean Corpuscular Hemoglobin Concent 35 g/dL (31-37) Red Cell Distribution Width 15.2 % (11.5-14.5) Platelet Count 277 x10^3/uL (140-400) Neutrophils (%) (Auto) 66 % (31-73) Lymphocytes (%) (Auto) 27 % (24-48) Monocytes (%) (Auto) 6 % (0-9) Eosinophils (%) (Auto) 0 % (0-3) Basophils (%) (Auto) 1 % (0-3) Neutrophils # (Auto) 3.1 x10^3uL (1.8-7.7) Lymphocytes # (Auto) 1.3 x10^3/uL (1.0-4.8) Monocytes # (Auto) 0.3 x10^3/uL (0.0-1.1) Eosinophils # (Auto) 0.0 x10^3/uL (0.0-0.7) Basophils # (Auto) 0.0 x10^3/uL (0.0-0.2) Sodium Level 138 mmol/L (136-145) Potassium Level 4.6 mmol/L (3.5-5.1) Chloride Level 102 mmol/L (98-107) Carbon Dioxide Level 25 mmol/L (21-32) Anion Gap 11 (6-14) Blood Urea Nitrogen 36 mg/dL (8-26) Creatinine 2.2 mg/dL (0.7-1.3) Estimated GFR (Cockcroft-Gault) 29.5 BUN/Creatinine Ratio 16 (6-20) Glucose Level 475 mg/dL (70-99) Calcium Level 10.1 mg/dL (8.5-10.1) Total Bilirubin 0.7 mg/dL (0.2-1.0) Aspartate Amino Transf (AST/SGOT) 13 U/L (15-37) Alanine Aminotransferase (ALT/SGPT) 24 U/L (16-63) Alkaline Phosphatase 118 U/L (46-116) Troponin I Quantitative < 0.017 ng/mL (0.000-0.055) FE-Eft-U-Type Natriuretic Peptide 250 pg/mL (0-124) Total Protein 7.7 g/dL (6.4-8.2) Albumin 3.9 g/dL (3.4-5.0) Albumin/Globulin Ratio 1.0 (1.0-1.7) 25-Hydroxy Vitamin D Total 30.3 ng/mL (30-100) Thyroid Stimulating Hormone (TSH) 1.434 uIU/mL (0.358-3.74) Free Thyroxine 1.23 ng/dL (0.76-1.46) Acetone Level Neg (NEG) Urine Collection Type Unknown Urine Color Yellow Urine Clarity Clear Urine pH 5.0 Urine Specific Alda >=1.030 Urine Protein Negative mg/dL (NEG-TRACE) Urine Glucose (UA) >=1000 mg/dL (NEG) Urine Ketones (Stick) Trace mg/dL (NEG) Urine Blood Negative (NEG) Urine Nitrite Negative (NEG) Urine Bilirubin Negative (NEG) Urine Urobilinogen Dipstick 0.2 mg/dL (0.2 mg/dL) Urine Leukocyte Esterase Negative (NEG) Urine RBC 0 /HPF (0-2) Urine WBC 0 /HPF (0-4) Urine Bacteria 0 /HPF (0-FEW) Urine Hyaline Casts Few /HPF Urine Mucus Slight /LPF Urine Opiates Screen Neg (NEG) Urine Methadone Screen Neg (NEG) Urine Barbiturates Neg (NEG) Urine Phencyclidine Screen Neg (NEG) Urine Amphetamine/Methamphetamine Neg (NEG) Urine Benzodiazepines Screen Neg (NEG) Urine Cocaine Screen Neg (NEG) Urine Cannabinoids Screen Neg (NEG) Urine Ethyl Alcohol Neg (NEG) Glucose (Fingerstick) 370 mg/dL (70-99) 287 mg/dL (70-99) Test 04/08/18 07:40 04/08/18 07:59 04/08/18 11:26 White Blood Count 5.0 x10^3/uL (4.0-11.0) Red Blood Count 4.04 x10^6/uL (4.30-5.70) Hemoglobin 12.2 g/dL (13.0-17.5) Hematocrit 35.0 % (39.0-53.0) Mean Corpuscular Volume 87 fL (79-100) Mean Corpuscular Hemoglobin 30 pg (25-35) Mean Corpuscular Hemoglobin Concent 35 g/dL (31-37) Red Cell Distribution Width 15.0 % (11.5-14.5) Platelet Count 253 x10^3/uL (140-400) Neutrophils (%) (Auto) 50 % (31-73) Lymphocytes (%) (Auto) 41 % (24-48) Monocytes (%) (Auto) 6 % (0-9) Eosinophils (%) (Auto) 1 % (0-3) Basophils (%) (Auto) 1 % (0-3) Neutrophils # (Auto) 2.5 x10^3uL (1.8-7.7) Lymphocytes # (Auto) 2.1 x10^3/uL (1.0-4.8) Monocytes # (Auto) 0.3 x10^3/uL (0.0-1.1) Eosinophils # (Auto) 0.1 x10^3/uL (0.0-0.7) Basophils # (Auto) 0.1 x10^3/uL (0.0-0.2) Sodium Level 141 mmol/L (136-145) Potassium Level 3.9 mmol/L (3.5-5.1) Chloride Level 106 mmol/L (98-107) Carbon Dioxide Level 25 mmol/L (21-32) Anion Gap 10 (6-14) Blood Urea Nitrogen 22 mg/dL (8-26) Creatinine 1.4 mg/dL (0.7-1.3) Estimated GFR (Cockcroft-Gault) 60.1 Glucose Level 226 mg/dL (70-99) Calcium Level 8.9 mg/dL (8.5-10.1) Glucose (Fingerstick) 203 mg/dL (70-99) 103 mg/dL (70-99) Laboratory Tests Test 04/07/18 17:10 04/07/18 19:16 04/07/18 20:42 04/07/18 21:48 White Blood Count 4.7 x10^3/uL (4.0-11.0) Red Blood Count 4.02 x10^6/uL (4.30-5.70) Hemoglobin 12.2 g/dL (13.0-17.5) Hematocrit 35.2 % (39.0-53.0) Mean Corpuscular Volume 88 fL (79-100) Mean Corpuscular Hemoglobin 30 pg (25-35) Mean Corpuscular Hemoglobin Concent 35 g/dL (31-37) Red Cell Distribution Width 15.2 % (11.5-14.5) Platelet Count 277 x10^3/uL (140-400) Neutrophils (%) (Auto) 66 % (31-73) Lymphocytes (%) (Auto) 27 % (24-48) Monocytes (%) (Auto) 6 % (0-9) Eosinophils (%) (Auto) 0 % (0-3) Basophils (%) (Auto) 1 % (0-3) Neutrophils # (Auto) 3.1 x10^3uL (1.8-7.7) Lymphocytes # (Auto) 1.3 x10^3/uL (1.0-4.8) Monocytes # (Auto) 0.3 x10^3/uL (0.0-1.1) Eosinophils # (Auto) 0.0 x10^3/uL (0.0-0.7) Basophils # (Auto) 0.0 x10^3/uL (0.0-0.2) Sodium Level 138 mmol/L (136-145) Potassium Level 4.6 mmol/L (3.5-5.1) Chloride Level 102 mmol/L (98-107) Carbon Dioxide Level 25 mmol/L (21-32) Anion Gap 11 (6-14) Blood Urea Nitrogen 36 mg/dL (8-26) Creatinine 2.2 mg/dL (0.7-1.3) Estimated GFR (Cockcroft-Gault) 29.5 BUN/Creatinine Ratio 16 (6-20) Glucose Level 475 mg/dL (70-99) Calcium Level 10.1 mg/dL (8.5-10.1) Total Bilirubin 0.7 mg/dL (0.2-1.0) Aspartate Amino Transf (AST/SGOT) 13 U/L (15-37) Alanine Aminotransferase (ALT/SGPT) 24 U/L (16-63) Alkaline Phosphatase 118 U/L (46-116) Troponin I Quantitative < 0.017 ng/mL (0.000-0.055) GB-Xtr-[id number]-Type Natriuretic Peptide 250 pg/mL (0-124) Total Protein 7.7 g/dL (6.4-8.2) Albumin 3.9 g/dL (3.4-5.0) Albumin/Globulin Ratio 1.0 (1.0-1.7) 25-Hydroxy Vitamin D Total 30.3 ng/mL (30-100) Thyroid Stimulating Hormone (TSH) 1.434 uIU/mL (0.358-3.74) Free Thyroxine 1.23 ng/dL (0.76-1.46) Acetone Level Neg (NEG) Urine Collection Type Unknown Urine Color Yellow Urine Clarity Clear Urine pH 5.0 Urine Specific Alda >=1.030 Urine Protein Negative mg/dL (NEG-TRACE) Urine Glucose (UA) >=1000 mg/dL (NEG) Urine Ketones (Stick) Trace mg/dL (NEG) Urine Blood Negative (NEG) Urine Nitrite Negative (NEG) Urine Bilirubin Negative (NEG) Urine Urobilinogen Dipstick 0.2 mg/dL (0.2 mg/dL) Urine Leukocyte Esterase Negative (NEG) Urine RBC 0 /HPF (0-2) Urine WBC 0 /HPF (0-4) Urine Bacteria 0 /HPF (0-FEW) Urine Hyaline Casts Few /HPF Urine Mucus Slight /LPF Urine Opiates Screen Neg (NEG) Urine Methadone Screen Neg (NEG) Urine Barbiturates Neg (NEG) Urine Phencyclidine Screen Neg (NEG) Urine Amphetamine/Methamphetamine Neg (NEG) Urine Benzodiazepines Screen Neg (NEG) Urine Cocaine Screen Neg (NEG) Urine Cannabinoids Screen Neg (NEG) Urine Ethyl Alcohol Neg (NEG) Glucose (Fingerstick) 370 mg/dL (70-99) 287 mg/dL (70-99) Test 04/08/18 07:40 04/08/18 07:59 04/08/18 11:26 White Blood Count 5.0 x10^3/uL (4.0-11.0) Red Blood Count 4.04 x10^6/uL (4.30-5.70) Hemoglobin 12.2 g/dL (13.0-17.5) Hematocrit 35.0 % (39.0-53.0) Mean Corpuscular Volume 87 fL (79-100) Mean Corpuscular Hemoglobin 30 pg (25-35) Mean Corpuscular Hemoglobin Concent 35 g/dL (31-37) Red Cell Distribution Width 15.0 % (11.5-14.5) Platelet Count 253 x10^3/uL (140-400) Neutrophils (%) (Auto) 50 % (31-73) Lymphocytes (%) (Auto) 41 % (24-48) Monocytes (%) (Auto) 6 % (0-9) Eosinophils (%) (Auto) 1 % (0-3) Basophils (%) (Auto) 1 % (0-3) Neutrophils # (Auto) 2.5 x10^3uL (1.8-7.7) Lymphocytes # (Auto) 2.1 x10^3/uL (1.0-4.8) Monocytes # (Auto) 0.3 x10^3/uL (0.0-1.1) Eosinophils # (Auto) 0.1 x10^3/uL (0.0-0.7) Basophils # (Auto) 0.1 x10^3/uL (0.0-0.2) Sodium Level 141 mmol/L (136-145) Potassium Level 3.9 mmol/L (3.5-5.1) Chloride Level 106 mmol/L (98-107) Carbon Dioxide Level 25 mmol/L (21-32) Anion Gap 10 (6-14) Blood Urea Nitrogen 22 mg/dL (8-26) Creatinine 1.4 mg/dL (0.7-1.3) Estimated GFR (Cockcroft-Gault) 60.1 Glucose Level 226 mg/dL (70-99) Calcium Level 8.9 mg/dL (8.5-10.1) Glucose (Fingerstick) 203 mg/dL (70-99) 103 mg/dL (70-99) Assessment/Plan Assessment/Plan IMP DEHYDRATION KENNEDY DUE TO ABOVE HYPERGLYCEMIA DEMENTIA PLAN S/P HYDRATION ENC PO AVOID HOME JACQUELIN-I USE WILL FOLLOW MARGARITO RASHEED MD Apr 08, 2018 12:08
[2018-04-08] MEDS ORDERED: CHOL10003 PO (12:40)
[2018-04-08] MEDS ORDERED: DULA0.75 SQ (12:40)
[2018-04-08] MEDS ORDERED: ATOR20TA58 PO (12:40)
[2018-04-08] MEDS ORDERED: AMLO10TA6 PO (12:40)
[2018-04-08] MEDS ORDERED: HYPR15DR5 OP (12:40)
[2018-04-08] MEDS ORDERED: INSU100I27 SQ (12:40)
[2018-04-08] MEDS ORDERED: CARB15DR3 EACHEYE (12:40)
[2018-04-08] MEDS ORDERED: DOCU100C28 PO (12:40)
[2018-04-08] MEDS ORDERED: DONE10TA7 PO (12:40)
[2018-04-08] MEDS ORDERED: MEMA10TA PO (12:40)
[2018-04-08] MEDS ORDERED: LORA10TA3 PO (12:40)
[2018-04-08] MEDS ORDERED: POLY17PO29 PO (12:40)
[2018-04-08] MEDS ORDERED: ASPI-612 PO (12:40)
[2018-04-08 15:00] VITALS: BP 106/73
--- NOTE | 2018-04-08 15:13 | PDOC2 ---
NEUROLOGY CONSULT Date of Admission Date of Admission DATE: 04/08/18 TIME: 14:57 Reason for Consult Reason for Consult: IMPRESSION: Metabolic encephalopathy. Lethargy. Hyperglycemia, glucose level 475. Acute renal failure. DM, poorly controlled. HTN. HLD. Dementia. RECOMMENDATIONS/PLAN: Control hyperglycemia. Treat medical diseases. EEG. Lab: see orders. Consulted Nephrology. OT/PT. HCT: No acute findings. HISTORY OF THE PRESENT ILLNESS: 72-y-old AA male patient with above medical diseases was noted mental status changes by his family and patient care director, so EMS was called and he was revealed hyperglycemia to brought to the ER of [facility]. His glucose level was 475. No focalized sensory or motor deficits noted. Past Medical History Cardiovascular: HTN, Hyperlipidemia CENTRAL NERVOUS SYSTEM: Dementia GI: Constipation Renal/: No pertinent hx Endocrine: Diabetes Family History Hypertension PAST SURGERY HISTORY: Tonsillectomy, Appendectomy. ALLERGY: Lisinopril. MEDICATIONS: Refer to [facility] SOCIAL HISTORY: Lives at home. Denies smoking, drinking, and illicit drug use. REVIEW OF SYSTEMS: Constitutional: No malnutrition, weight loss, cachexia. Head: No traumatic brain or head injury. Skin: No edema, or rash. Ear: No infection Eyes: No vision loss or color blindness. Nose: No bleeding or purulent discharges. Hearing: No hearing decrease. Neck: No recent injury. Cardiac: HTN, HLD. Pulmonary: No COPD. GI: No GI ulcer, GI bleeding. Urinary/genital: UTI. Endocrinologic: Diabetes Mellitus. Skeletomuscular: Generalized weakness. Neurological: see HP. Psychiatric: Denies drug use/abuse. Otherwise, not [id number] review of systems. PHYSICAL EXAMINATION: General appearance is in subacute distress. HEENT: Normocephalic and nontraumatic. Eyes, nose, ears, and throat are unremarkable. Neck is supple. No lymphadenopathy. No crepitus. Cardiovascular: S1, S2, regular rate and rhythm. Pulmonary: Clear to auscultation bilaterally. Abdomen: Bowel sounds are positive. Extremities: No rash, lesions, or edema. No restriction of range of motion NEUROLOGICAL EXAMINATION: Mild lethargy. Not oriented to time, place and person. PERRL. EOMI. CN: no focal findings. Muscle tone: within normal. Muscle strength: 4+ DTR: 2 UE, 1+ at knee. Plantar reflex: Neutral response bilaterally Gait: not examined in bed. Sensory exam: no abnormal findings. Not able to access cerebellar signs due to not follow commands. F-T-N test not performed due to not follow commands. Current Medications Current Medications Current Medications Sodium Chloride 1,000 ml @ 1,000 mls/hr Q1H IV Last administered on at 19:45; Start 04/07/18 at 17:25; Stop 04/07/18 at 18:24; Status DC Insulin Human Lispro (HumaLOG) 0-5 UNITS TIDWMEALS SQ ; Start 04/08/18 at 08:00 Dextrose (Dextrose 50%-Water Syringe) 12.5 gm PRN Q15MIN PRN IV SEE COMMENTS; Start 04/07/18 at 18:30 Enalaprilat (Vasotec Inj) 1.25 mg PRN Q6HRS PRN IVP ELEVATED BP, SEE COMMENTS; Start 04/07/18 at 18:45 Enoxaparin Sodium (Lovenox 30mg Syringe) 30 mg HS SQ Last administered on 04/07at 21:31; Start 04/07/18 at 21:00 Multivitamins 10 ml/Thiamine HCl 100 mg/Folic Acid 1 mg/Sodium Chloride 1,011.2 ml @ 80 mls/hr 1X ONCE IV Last administered on 04/07/18at 20:52; Start 04/07 at 19:00; Stop 04/08/18 at 07:38; Status DC Lisinopril (Prinivil) 10 mg DAILY07 PO ; Start 04/07/18 at 19:00; Stop at 20:31; Status DC Insulin Human Lispro (HumaLOG) 5 units 1X ONCE SQ Last administered on at 20:51; Start 04/07/18 at 20:00; Stop 04/07/18 at 20:01; Status DC Insulin Human Lispro (HumaLOG) 6 units TIDWMEALS SQ Last administered on at 08:29; Start 04/08/18 at 08:00 Donepezil HCl (Aricept) 5 mg DAILY PO ; Start 04/08/18 at 15:30 Active Scripts Active Reported Vitamin D3 (Cholecalciferol (Vitamin D3)) 1,000 Unit Tablet 1 Tab PO DAILY Isopto Tears (Hypromellose) 15 Ml Drops 15 Ml OP BID Refresh Optive Eye Drops (Carboxymethylcellulos/Glycerin) 15 Ml Drops 1 Drop EACHEYE BID Trulicity (Dulaglutide) 0.75 Mg/0.5 Ml Pen.injctr 0.75 Mg SQ QSU Levemir Flextouch (Insulin Detemir) 100 Unit/1 Ml Insuln.pen 14 Unit SQ HS Docusate Sodium 100 Mg Capsule 1 Cap PO BID Atorvastatin Calcium 20 Mg Tablet 1 Tab PO DAILY Amlodipine Besylate 10 Mg Tablet 10 Mg PO DAILY Namenda (Memantine Hcl) 10 Mg Tablet 0.5 Tab PO BID Donepezil Hcl 10 Mg Tablet 1 Tab PO DAILY Aspirin Ec (Aspirin) 81 Mg Tablet.dr 1 Tab PO DAILY Loratadine 10 Mg Tablet 1 Tab PO DAILY PRN Miralax (Polyethylene Glycol 3350) 17 Gm Powd.pack 1 Packet PO DAILY PRN Allergies Allergies: Allergies Coded Allergies Type Severity Reaction Last Updated Verified lisinopril Allergy Mild 04/07/18 Yes ROS Review of System The patient denies any associated fevers, chills, headache, ear pain, rhinorrhea , sore throat, stiff neck, productive cough, chest pain, shortness of breath, back or flank pain, abdominal pain, nausea, vomiting, diarrhea, constipation, dysuria, rash, numbness, weakness, tingling, incontinence, difficulty ambulating, or diaphoresis. Physical Exam Physical Exam General: Well developed, well nourished, no acute distress, well appearing HEENT: Pupils equally round and reactive to light, EOMI, no discharge, normal conjunctiva Neck: Supple, no nuchal rigidity, no JVD, trachea midline, no tenderness Cardiac: RRR, no murmurs, no gallops, no rubs Chest/Lungs: CTAB, no wheeze, no rhonchi, no crackles Abdomen: soft, non-distended, no guarding, no peritoneal signs, non-tender Back: No tenderness Extremities: no edema, pulses intact, non-tender,capillary refill <3 sec bilateral upper and lower extremities, Neuro: Alert and oriented x 4, no focal deficits, normal speech Vitals Vitals: Vital Signs Date Time Temp Pulse Resp B/P (MAP) Pulse Ox O2 Delivery O2 Flow Rate FiO2 04/08/18 11:05 98.5 66 18 111/65 (80) 100 Room Air 98.5 Labs Labs Laboratory Tests Test 04/07/18 17:10 04/07/18 19:16 04/07/18 20:42 04/07/18 21:48 White Blood Count 4.7 x10^3/uL (4.0-11.0) Red Blood Count 4.02 x10^6/uL (4.30-5.70) Hemoglobin 12.2 g/dL (13.0-17.5) Hematocrit 35.2 % (39.0-53.0) Mean Corpuscular Volume 88 fL (79-100) Mean Corpuscular Hemoglobin 30 pg (25-35) Mean Corpuscular Hemoglobin Concent 35 g/dL (31-37) Red Cell Distribution Width 15.2 % (11.5-14.5) Platelet Count 277 x10^3/uL (140-400) Neutrophils (%) (Auto) 66 % (31-73) Lymphocytes (%) (Auto) 27 % (24-48) Monocytes (%) (Auto) 6 % (0-9) Eosinophils (%) (Auto) 0 % (0-3) Basophils (%) (Auto) 1 % (0-3) Neutrophils # (Auto) 3.1 x10^3uL (1.8-7.7) Lymphocytes # (Auto) 1.3 x10^3/uL (1.0-4.8) Monocytes # (Auto) 0.3 x10^3/uL (0.0-1.1) Eosinophils # (Auto) 0.0 x10^3/uL (0.0-0.7) Basophils # (Auto) 0.0 x10^3/uL (0.0-0.2) Sodium Level 138 mmol/L (136-145) Potassium Level 4.6 mmol/L (3.5-5.1) Chloride Level 102 mmol/L (98-107) Carbon Dioxide Level 25 mmol/L (21-32) Anion Gap 11 (6-14) Blood Urea Nitrogen 36 mg/dL (8-26) Creatinine 2.2 mg/dL (0.7-1.3) Estimated GFR (Cockcroft-Gault) 29.5 BUN/Creatinine Ratio 16 (6-20) Glucose Level 475 mg/dL (70-99) Calcium Level 10.1 mg/dL (8.5-10.1) Total Bilirubin 0.7 mg/dL (0.2-1.0) Aspartate Amino Transf (AST/SGOT) 13 U/L (15-37) Alanine Aminotransferase (ALT/SGPT) 24 U/L (16-63) Alkaline Phosphatase 118 U/L (46-116) Troponin I Quantitative < 0.017 ng/mL (0.000-0.055) LV-Yfc-J-Type Natriuretic Peptide 250 pg/mL (0-124) Total Protein 7.7 g/dL (6.4-8.2) Albumin 3.9 g/dL (3.4-5.0) Albumin/Globulin Ratio 1.0 (1.0-1.7) 25-Hydroxy Vitamin D Total 30.3 ng/mL (30-100) Thyroid Stimulating Hormone (TSH) 1.434 uIU/mL (0.358-3.74) Free Thyroxine 1.23 ng/dL (0.76-1.46) Acetone Level Neg (NEG) Urine Collection Type Unknown Urine Color Yellow Urine Clarity Clear Urine pH 5.0 Urine Specific [place] >=1.030 Urine Protein Negative mg/dL (NEG-TRACE) Urine Glucose (UA) >=1000 mg/dL (NEG) Urine Ketones (Stick) Trace mg/dL (NEG) Urine Blood Negative (NEG) Urine Nitrite Negative (NEG) Urine Bilirubin Negative (NEG) Urine Urobilinogen Dipstick 0.2 mg/dL (0.2 mg/dL) Urine Leukocyte Esterase Negative (NEG) Urine RBC 0 /HPF (0-2) Urine WBC 0 /HPF (0-4) Urine Bacteria 0 /HPF (0-FEW) Urine Hyaline Casts Few /HPF Urine Mucus Slight /LPF Urine Opiates Screen Neg (NEG) Urine Methadone Screen Neg (NEG) Urine Barbiturates Neg (NEG) Urine Phencyclidine Screen Neg (NEG) Urine Amphetamine/Methamphetamine Neg (NEG) Urine Benzodiazepines Screen Neg (NEG) Urine Cocaine Screen Neg (NEG) Urine Cannabinoids Screen Neg (NEG) Urine Ethyl Alcohol Neg (NEG) Glucose (Fingerstick) 370 mg/dL (70-99) 287 mg/dL (70-99) Test 04/08/18 07:40 04/08/18 07:59 04/08/18 11:26 White Blood Count 5.0 x10^3/uL (4.0-11.0) Red Blood Count 4.04 x10^6/uL (4.30-5.70) Hemoglobin 12.2 g/dL (13.0-17.5) Hematocrit 35.0 % (39.0-53.0) Mean Corpuscular Volume 87 fL (79-100) Mean Corpuscular Hemoglobin 30 pg (25-35) Mean Corpuscular Hemoglobin Concent 35 g/dL (31-37) Red Cell Distribution Width 15.0 % (11.5-14.5) Platelet Count 253 x10^3/uL (140-400) Neutrophils (%) (Auto) 50 % (31-73) Lymphocytes (%) (Auto) 41 % (24-48) Monocytes (%) (Auto) 6 % (0-9) Eosinophils (%) (Auto) 1 % (0-3) Basophils (%) (Auto) 1 % (0-3) Neutrophils # (Auto) 2.5 x10^3uL (1.8-7.7) Lymphocytes # (Auto) 2.1 x10^3/uL (1.0-4.8) Monocytes # (Auto) 0.3 x10^3/uL (0.0-1.1) Eosinophils # (Auto) 0.1 x10^3/uL (0.0-0.7) Basophils # (Auto) 0.1 x10^3/uL (0.0-0.2) Sodium Level 141 mmol/L (136-145) Potassium Level 3.9 mmol/L (3.5-5.1) Chloride Level 106 mmol/L (98-107) Carbon Dioxide Level 25 mmol/L (21-32) Anion Gap 10 (6-14) Blood Urea Nitrogen 22 mg/dL (8-26) Creatinine 1.4 mg/dL (0.7-1.3) Estimated GFR (Cockcroft-Gault) 60.1 Glucose Level 226 mg/dL (70-99) Calcium Level 8.9 mg/dL (8.5-10.1) Vitamin B12 Level 850 pg/mL (247-911) Glucose (Fingerstick) 203 mg/dL (70-99) 103 mg/dL (70-99) Laboratory Tests Test 04/07/18 17:10 04/07/18 19:16 04/07/18 20:42 04/07/18 21:48 White Blood Count 4.7 x10^3/uL (4.0-11.0) Red Blood Count 4.02 x10^6/uL (4.30-5.70) Hemoglobin 12.2 g/dL (13.0-17.5) Hematocrit 35.2 % (39.0-53.0) Mean Corpuscular Volume 88 fL (79-100) Mean Corpuscular Hemoglobin 30 pg (25-35) Mean Corpuscular Hemoglobin Concent 35 g/dL (31-37) Red Cell Distribution Width 15.2 % (11.5-14.5) Platelet Count 277 x10^3/uL (140-400) Neutrophils (%) (Auto) 66 % (31-73) Lymphocytes (%) (Auto) 27 % (24-48) Monocytes (%) (Auto) 6 % (0-9) Eosinophils (%) (Auto) 0 % (0-3) Basophils (%) (Auto) 1 % (0-3) Neutrophils # (Auto) 3.1 x10^3uL (1.8-7.7) Lymphocytes # (Auto) 1.3 x10^3/uL (1.0-4.8) Monocytes # (Auto) 0.3 x10^3/uL (0.0-1.1) Eosinophils # (Auto) 0.0 x10^3/uL (0.0-0.7) Basophils # (Auto) 0.0 x10^3/uL (0.0-0.2) Sodium Level 138 mmol/L (136-145) Potassium Level 4.6 mmol/L (3.5-5.1) Chloride Level 102 mmol/L (98-107) Carbon Dioxide Level 25 mmol/L (21-32) Anion Gap 11 (6-14) Blood Urea Nitrogen 36 mg/dL (8-26) Creatinine 2.2 mg/dL (0.7-1.3) Estimated GFR (Cockcroft-Gault) 29.5 BUN/Creatinine Ratio 16 (6-20) Glucose Level 475 mg/dL (70-99) Calcium Level 10.1 mg/dL (8.5-10.1) Total Bilirubin 0.7 mg/dL (0.2-1.0) Aspartate Amino Transf (AST/SGOT) 13 U/L (15-37) Alanine Aminotransferase (ALT/SGPT) 24 U/L (16-63) Alkaline Phosphatase 118 U/L (46-116) Troponin I Quantitative < 0.017 ng/mL (0.000-0.055) EO-Cpf-J-Type Natriuretic Peptide 250 pg/mL (0-124) Total Protein 7.7 g/dL (6.4-8.2) Albumin 3.9 g/dL (3.4-5.0) Albumin/Globulin Ratio 1.0 (1.0-1.7) 25-Hydroxy Vitamin D Total 30.3 ng/mL (30-100) Thyroid Stimulating Hormone (TSH) 1.434 uIU/mL (0.358-3.74) Free Thyroxine 1.23 ng/dL (0.76-1.46) Acetone Level Neg (NEG) Urine Collection Type Unknown Urine Color Yellow Urine Clarity Clear Urine pH 5.0 Urine Specific [place] >=1.030 Urine Protein Negative mg/dL (NEG-TRACE) Urine Glucose (UA) >=1000 mg/dL (NEG) Urine Ketones (Stick) Trace mg/dL (NEG) Urine Blood Negative (NEG) Urine Nitrite Negative (NEG) Urine Bilirubin Negative (NEG) Urine Urobilinogen Dipstick 0.2 mg/dL (0.2 mg/dL) Urine Leukocyte Esterase Negative (NEG) Urine RBC 0 /HPF (0-2) Urine WBC 0 /HPF (0-4) Urine Bacteria 0 /HPF (0-FEW) Urine Hyaline Casts Few /HPF Urine Mucus Slight /LPF Urine Opiates Screen Neg (NEG) Urine Methadone Screen Neg (NEG) Urine Barbiturates Neg (NEG) Urine Phencyclidine Screen Neg (NEG) Urine Amphetamine/Methamphetamine Neg (NEG) Urine Benzodiazepines Screen Neg (NEG) Urine Cocaine Screen Neg (NEG) Urine Cannabinoids Screen Neg (NEG) Urine Ethyl Alcohol Neg (NEG) Glucose (Fingerstick) 370 mg/dL (70-99) 287 mg/dL (70-99) Test 04/08/18 07:40 04/08/18 07:59 04/08/18 11:26 White Blood Count 5.0 x10^3/uL (4.0-11.0) Red Blood Count 4.04 x10^6/uL (4.30-5.70) Hemoglobin 12.2 g/dL (13.0-17.5) Hematocrit 35.0 % (39.0-53.0) Mean Corpuscular Volume 87 fL (79-100) Mean Corpuscular Hemoglobin 30 pg (25-35) Mean Corpuscular Hemoglobin Concent 35 g/dL (31-37) Red Cell Distribution Width 15.0 % (11.5-14.5) Platelet Count 253 x10^3/uL (140-400) Neutrophils (%) (Auto) 50 % (31-73) Lymphocytes (%) (Auto) 41 % (24-48) Monocytes (%) (Auto) 6 % (0-9) Eosinophils (%) (Auto) 1 % (0-3) Basophils (%) (Auto) 1 % (0-3) Neutrophils # (Auto) 2.5 x10^3uL (1.8-7.7) Lymphocytes # (Auto) 2.1 x10^3/uL (1.0-4.8) Monocytes # (Auto) 0.3 x10^3/uL (0.0-1.1) Eosinophils # (Auto) 0.1 x10^3/uL (0.0-0.7) Basophils # (Auto) 0.1 x10^3/uL (0.0-0.2) Sodium Level 141 mmol/L (136-145) Potassium Level 3.9 mmol/L (3.5-5.1) Chloride Level 106 mmol/L (98-107) Carbon Dioxide Level 25 mmol/L (21-32) Anion Gap 10 (6-14) Blood Urea Nitrogen 22 mg/dL (8-26) Creatinine 1.4 mg/dL (0.7-1.3) Estimated GFR (Cockcroft-Gault) 60.1 Glucose Level 226 mg/dL (70-99) Calcium Level 8.9 mg/dL (8.5-10.1) Vitamin B12 Level 850 pg/mL (247-911) Glucose (Fingerstick) 203 mg/dL (70-99) 103 mg/dL (70-99) DEVYN JEFFERS MD Apr 08, 2018 15:13
[2018-04-08] MEDS: ASPIRIN 325 MG TABLET PO SCH (15:29)
[2018-04-08] MEDS: DONEPEZIL HCL 5 MG TABLET. PO SCH (15:29)
[2018-04-08 19:00] VITALS: BP 167/86
[2018-04-08] MEDS: ENOXAPARIN 40 MG/0.4 ML SYRINGE. SQ SCH (21:29)
[2018-04-08 22:30] VITALS: BP 171/98
[2018-04-09 02:53] VITALS: BP 150/85
[2018-04-09 04:06] LABS: BASO # 0.1 x10^3/uL (0.0-0.2); BASO % 1 % (0-3); EOS # 0.1 x10^3/uL (0.0-0.7); EOS % 1 % (0-3); HEMATOCRIT 34.8 % (39.0-53.0); HEMOGLOBIN 12.1 g/dL (13.0-17.5); LYMPH # 2.6 x10^3/uL (1.0-4.8); LYMPH % 50 % (24-48); MEAN CORPUSCULAR HEMOGLOBIN 30 pg (25-35); MEAN CORPUSCULAR HGB CONC 35 g/dL (31-37); MEAN CORPUSCULAR VOLUME 87 fL (79-100); MONO # 0.2 x10^3/uL (0.0-1.1); MONO % 5 % (0-9); NEUT # 2.2 x10^3uL (1.8-7.7); NEUT % 43 % (31-73); PLATELET COUNT 252 x10^3/uL (140-400); WHITE BLOOD COUNT 5.1 x10^3/uL (4.0-11.0)
[2018-04-09 04:26] LABS: ALBUMIN 3.2 g/dL (3.4-5.0); CALCIUM 8.8 mg/dL (8.5-10.1); CREATININE 1.4 mg/dL (0.7-1.3); GFR 60.1; PHOSPHORUS 2.8 mg/dL (2.6-4.7)
[2018-04-09 07:00] VITALS: BP 139/71
[2018-04-09] MEDS: INSULIN LISPRO 300 UNITS/3 ML INSULN.PEN. SQ SCH ×6 (08:00→16:05)
[2018-04-09] MEDS: DONEPEZIL HCL 5 MG TABLET. PO SCH (08:01)
[2018-04-09] MEDS: ASPIRIN 325 MG TABLET PO SCH (08:01)
--- NOTE | 2018-04-09 10:46 | PDOC ---
PROGRESS NOTES History of Present Illness History of Present Illness Assessment/Plan Assessment/Plan impression 1. advanced dementia 2. uncontrolled diabetes, unsure of duration of dx 3. high fall risk 4. gait instability 5, severe self care deficits 6. acute renal failure 7. uncontrolled hypertension 8. abnormal weight loss of 100# in 12 months by SO hx in room today 9. dehydration plan iv enalapril lisinopril 5mg po bid tele admit ss insulin sitter neurology consult iv fluid support ct head noted a1c sq lovenox Vitals Vitals Vital Signs Date Time Temp Pulse Resp B/P (MAP) Pulse Ox O2 Delivery O2 Flow Rate FiO2 04/09/18 07:12 Room Air 04/09/18 07:00 97.9 66 16 139/71 (93) 100 97.9 Physical Exam Physical Exam EENT: PERRL, EOMI. Conjunctivae normal color, sclerae non-icteric; dry mucous membranes. NECK: Supple, non-tender; no meningismus. LUNGS: Lungs CTA, breathing even and unlabored. Normal air movement. HEART: Regular rate and rhythm, no murmur CHEST: No deformity; non-tender ABDOMEN: The abdomen is soft, and non-tender, no masses or bruits. EXTREM: Normal ROM; no deformity, no calf tenderness. Normal pulses palpable in all extremities. There is no pedal edema. SKIN: No rash; no diaphoresis NEURO: Alert; normal speech, impaired cognition consistent with underlying dementia, patient moves all extremities gait looks unsteady. General: Alert, Cooperative, mild distress HEENT: Atraumatic Heart: S1S2 Breasts: Not examined Abdomen: Soft Rectal Exam: not examined Neuro: Cranial nerves 3-12 NL General: Cooperative, mild distress Heart: Regular rate, No murmurs Lungs: Clear Abdomen: Normal bowel sounds, Soft, No tenderness, No hepatosplenomegaly Extremities: No clubbing, No cyanosis Skin: No breakdown Labs LABS Laboratory Tests Test 04/08/18 11:26 04/08/18 16:04 04/08/18 20:30 04/09/18 03:40 Glucose (Fingerstick) 103 mg/dL (70-99) 158 mg/dL (70-99) 127 mg/dL (70-99) White Blood Count 5.1 x10^3/uL (4.0-11.0) Red Blood Count 4.00 x10^6/uL (4.30-5.70) Hemoglobin 12.1 g/dL (13.0-17.5) Hematocrit 34.8 % (39.0-53.0) Mean Corpuscular Volume 87 fL (79-100) Mean Corpuscular Hemoglobin 30 pg (25-35) Mean Corpuscular Hemoglobin Concent 35 g/dL (31-37) Red Cell Distribution Width 15.0 % (11.5-14.5) Platelet Count 252 x10^3/uL (140-400) Neutrophils (%) (Auto) 43 % (31-73) Lymphocytes (%) (Auto) 50 % (24-48) Monocytes (%) (Auto) 5 % (0-9) Eosinophils (%) (Auto) 1 % (0-3) Basophils (%) (Auto) 1 % (0-3) Neutrophils # (Auto) 2.2 x10^3uL (1.8-7.7) Lymphocytes # (Auto) 2.6 x10^3/uL (1.0-4.8) Monocytes # (Auto) 0.2 x10^3/uL (0.0-1.1) Eosinophils # (Auto) 0.1 x10^3/uL (0.0-0.7) Basophils # (Auto) 0.1 x10^3/uL (0.0-0.2) Sodium Level 139 mmol/L (136-145) Potassium Level 4.0 mmol/L (3.5-5.1) Chloride Level 106 mmol/L (98-107) Carbon Dioxide Level 24 mmol/L (21-32) Anion Gap 9 (6-14) Blood Urea Nitrogen 17 mg/dL (8-26) Creatinine 1.4 mg/dL (0.7-1.3) Estimated GFR (Cockcroft-Gault) 60.1 Glucose Level 178 mg/dL (70-99) Calcium Level 8.8 mg/dL (8.5-10.1) Phosphorus Level 2.8 mg/dL (2.6-4.7) Albumin 3.2 g/dL (3.4-5.0) Triglycerides Level 58 mg/dL (0-150) Cholesterol Level 189 mg/dL (0-200) LDL Cholesterol, Calculated 115 mg/dL (0-100) VLDL Cholesterol, Calculated 12 mg/dL (0-40) Non-HDL Cholesterol Calculated 127 mg/dL (0-129) HDL Cholesterol 62 mg/dL (40-60) Cholesterol/HDL Ratio 3.0 Test 04/09/18 07:53 Glucose (Fingerstick) 158 mg/dL (70-99) Assessment and Plan Assessmemt and Plan Problems Medical Problems: (1) Dementia Status: Acute (2) Hyperglycemia Status: Acute (3) Renal failure Status: Acute Comment Review of Relevant I have reviewed the following items radha (where applicable) has been applied. Labs Laboratory Tests Test 04/07/18 17:10 04/07/18 19:16 04/07/18 20:42 04/07/18 21:48 White Blood Count 4.7 x10^3/uL (4.0-11.0) Red Blood Count 4.02 x10^6/uL (4.30-5.70) Hemoglobin 12.2 g/dL (13.0-17.5) Hematocrit 35.2 % (39.0-53.0) Mean Corpuscular Volume 88 fL (79-100) Mean Corpuscular Hemoglobin 30 pg (25-35) Mean Corpuscular Hemoglobin Concent 35 g/dL (31-37) Red Cell Distribution Width 15.2 % (11.5-14.5) Platelet Count 277 x10^3/uL (140-400) Neutrophils (%) (Auto) 66 % (31-73) Lymphocytes (%) (Auto) 27 % (24-48) Monocytes (%) (Auto) 6 % (0-9) Eosinophils (%) (Auto) 0 % (0-3) Basophils (%) (Auto) 1 % (0-3) Neutrophils # (Auto) 3.1 x10^3uL (1.8-7.7) Lymphocytes # (Auto) 1.3 x10^3/uL (1.0-4.8) Monocytes # (Auto) 0.3 x10^3/uL (0.0-1.1) Eosinophils # (Auto) 0.0 x10^3/uL (0.0-0.7) Basophils # (Auto) 0.0 x10^3/uL (0.0-0.2) Sodium Level 138 mmol/L (136-145) Potassium Level 4.6 mmol/L (3.5-5.1) Chloride Level 102 mmol/L (98-107) Carbon Dioxide Level 25 mmol/L (21-32) Anion Gap 11 (6-14) Blood Urea Nitrogen 36 mg/dL (8-26) Creatinine 2.2 mg/dL (0.7-1.3) Estimated GFR (Cockcroft-Gault) 29.5 BUN/Creatinine Ratio 16 (6-20) Glucose Level 475 mg/dL (70-99) Calcium Level 10.1 mg/dL (8.5-10.1) Total Bilirubin 0.7 mg/dL (0.2-1.0) Aspartate Amino Transf (AST/SGOT) 13 U/L (15-37) Alanine Aminotransferase (ALT/SGPT) 24 U/L (16-63) Alkaline Phosphatase 118 U/L (46-116) Troponin I Quantitative < 0.017 ng/mL (0.000-0.055) NI-Fen-I-Type Natriuretic Peptide 250 pg/mL (0-124) Total Protein 7.7 g/dL (6.4-8.2) Albumin 3.9 g/dL (3.4-5.0) Albumin/Globulin Ratio 1.0 (1.0-1.7) 25-Hydroxy Vitamin D Total 30.3 ng/mL (30-100) Thyroid Stimulating Hormone (TSH) 1.434 uIU/mL (0.358-3.74) Free Thyroxine 1.23 ng/dL (0.76-1.46) Acetone Level Neg (NEG) Urine Collection Type Unknown Urine Color Yellow Urine Clarity Clear Urine pH 5.0 Urine Specific [place] >=1.030 Urine Protein Negative mg/dL (NEG-TRACE) Urine Glucose (UA) >=1000 mg/dL (NEG) Urine Ketones (Stick) Trace mg/dL (NEG) Urine Blood Negative (NEG) Urine Nitrite Negative (NEG) Urine Bilirubin Negative (NEG) Urine Urobilinogen Dipstick 0.2 mg/dL (0.2 mg/dL) Urine Leukocyte Esterase Negative (NEG) Urine RBC 0 /HPF (0-2) Urine WBC 0 /HPF (0-4) Urine Bacteria 0 /HPF (0-FEW) Urine Hyaline Casts Few /HPF Urine Mucus Slight /LPF Urine Opiates Screen Neg (NEG) Urine Methadone Screen Neg (NEG) Urine Barbiturates Neg (NEG) Urine Phencyclidine Screen Neg (NEG) Urine Amphetamine/Methamphetamine Neg (NEG) Urine Benzodiazepines Screen Neg (NEG) Urine Cocaine Screen Neg (NEG) Urine Cannabinoids Screen Neg (NEG) Urine Ethyl Alcohol Neg (NEG) Glucose (Fingerstick) 370 mg/dL (70-99) 287 mg/dL (70-99) Test 04/08/18 07:40 04/08/18 07:59 04/08/18 11:26 04/08/18 16:04 White Blood Count 5.0 x10^3/uL (4.0-11.0) Red Blood Count 4.04 x10^6/uL (4.30-5.70) Hemoglobin 12.2 g/dL (13.0-17.5) Hematocrit 35.0 % (39.0-53.0) Mean Corpuscular Volume 87 fL (79-100) Mean Corpuscular Hemoglobin 30 pg (25-35) Mean Corpuscular Hemoglobin Concent 35 g/dL (31-37) Red Cell Distribution Width 15.0 % (11.5-14.5) Platelet Count 253 x10^3/uL (140-400) Neutrophils (%) (Auto) 50 % (31-73) Lymphocytes (%) (Auto) 41 % (24-48) Monocytes (%) (Auto) 6 % (0-9) Eosinophils (%) (Auto) 1 % (0-3) Basophils (%) (Auto) 1 % (0-3) Neutrophils # (Auto) 2.5 x10^3uL (1.8-7.7) Lymphocytes # (Auto) 2.1 x10^3/uL (1.0-4.8) Monocytes # (Auto) 0.3 x10^3/uL (0.0-1.1) Eosinophils # (Auto) 0.1 x10^3/uL (0.0-0.7) Basophils # (Auto) 0.1 x10^3/uL (0.0-0.2) Sodium Level 141 mmol/L (136-145) Potassium Level 3.9 mmol/L (3.5-5.1) Chloride Level 106 mmol/L (98-107) Carbon Dioxide Level 25 mmol/L (21-32) Anion Gap 10 (6-14) Blood Urea Nitrogen 22 mg/dL (8-26) Creatinine 1.4 mg/dL (0.7-1.3) Estimated GFR (Cockcroft-Gault) 60.1 Glucose Level 226 mg/dL (70-99) Calcium Level 8.9 mg/dL (8.5-10.1) Vitamin B12 Level 850 pg/mL (247-911) Glucose (Fingerstick) 203 mg/dL (70-99) 103 mg/dL (70-99) 158 mg/dL (70-99) Test 04/08/18 20:30 04/09/18 03:40 04/09/18 07:53 Glucose (Fingerstick) 127 mg/dL (70-99) 158 mg/dL (70-99) White Blood Count 5.1 x10^3/uL (4.0-11.0) Red Blood Count 4.00 x10^6/uL (4.30-5.70) Hemoglobin 12.1 g/dL (13.0-17.5) Hematocrit 34.8 % (39.0-53.0) Mean Corpuscular Volume 87 fL (79-100) Mean Corpuscular Hemoglobin 30 pg (25-35) Mean Corpuscular Hemoglobin Concent 35 g/dL (31-37) Red Cell Distribution Width 15.0 % (11.5-14.5) Platelet Count 252 x10^3/uL (140-400) Neutrophils (%) (Auto) 43 % (31-73) Lymphocytes (%) (Auto) 50 % (24-48) Monocytes (%) (Auto) 5 % (0-9) Eosinophils (%) (Auto) 1 % (0-3) Basophils (%) (Auto) 1 % (0-3) Neutrophils # (Auto) 2.2 x10^3uL (1.8-7.7) Lymphocytes # (Auto) 2.6 x10^3/uL (1.0-4.8) Monocytes # (Auto) 0.2 x10^3/uL (0.0-1.1) Eosinophils # (Auto) 0.1 x10^3/uL (0.0-0.7) Basophils # (Auto) 0.1 x10^3/uL (0.0-0.2) Sodium Level 139 mmol/L (136-145) Potassium Level 4.0 mmol/L (3.5-5.1) Chloride Level 106 mmol/L (98-107) Carbon Dioxide Level 24 mmol/L (21-32) Anion Gap 9 (6-14) Blood Urea Nitrogen 17 mg/dL (8-26) Creatinine 1.4 mg/dL (0.7-1.3) Estimated GFR (Cockcroft-Gault) 60.1 Glucose Level 178 mg/dL (70-99) Calcium Level 8.8 mg/dL (8.5-10.1) Phosphorus Level 2.8 mg/dL (2.6-4.7) Albumin 3.2 g/dL (3.4-5.0) Triglycerides Level 58 mg/dL (0-150) Cholesterol Level 189 mg/dL (0-200) LDL Cholesterol, Calculated 115 mg/dL (0-100) VLDL Cholesterol, Calculated 12 mg/dL (0-40) Non-HDL Cholesterol Calculated 127 mg/dL (0-129) HDL Cholesterol 62 mg/dL (40-60) Cholesterol/HDL Ratio 3.0 Laboratory Tests Test 04/08/18 11:26 04/08/18 16:04 04/08/18 20:30 04/09/18 03:40 Glucose (Fingerstick) 103 mg/dL (70-99) 158 mg/dL (70-99) 127 mg/dL (70-99) White Blood Count 5.1 x10^3/uL (4.0-11.0) Red Blood Count 4.00 x10^6/uL (4.30-5.70) Hemoglobin 12.1 g/dL (13.0-17.5) Hematocrit 34.8 % (39.0-53.0) Mean Corpuscular Volume 87 fL (79-100) Mean Corpuscular Hemoglobin 30 pg (25-35) Mean Corpuscular Hemoglobin Concent 35 g/dL (31-37) Red Cell Distribution Width 15.0 % (11.5-14.5) Platelet Count 252 x10^3/uL (140-400) Neutrophils (%) (Auto) 43 % (31-73) Lymphocytes (%) (Auto) 50 % (24-48) Monocytes (%) (Auto) 5 % (0-9) Eosinophils (%) (Auto) 1 % (0-3) Basophils (%) (Auto) 1 % (0-3) Neutrophils # (Auto) 2.2 x10^3uL (1.8-7.7) Lymphocytes # (Auto) 2.6 x10^3/uL (1.0-4.8) Monocytes # (Auto) 0.2 x10^3/uL (0.0-1.1) Eosinophils # (Auto) 0.1 x10^3/uL (0.0-0.7) Basophils # (Auto) 0.1 x10^3/uL (0.0-0.2) Sodium Level 139 mmol/L (136-145) Potassium Level 4.0 mmol/L (3.5-5.1) Chloride Level 106 mmol/L (98-107) Carbon Dioxide Level 24 mmol/L (21-32) Anion Gap 9 (6-14) Blood Urea Nitrogen 17 mg/dL (8-26) Creatinine 1.4 mg/dL (0.7-1.3) Estimated GFR (Cockcroft-Gault) 60.1 Glucose Level 178 mg/dL (70-99) Calcium Level 8.8 mg/dL (8.5-10.1) Phosphorus Level 2.8 mg/dL (2.6-4.7) Albumin 3.2 g/dL (3.4-5.0) Triglycerides Level 58 mg/dL (0-150) Cholesterol Level 189 mg/dL (0-200) LDL Cholesterol, Calculated 115 mg/dL (0-100) VLDL Cholesterol, Calculated 12 mg/dL (0-40) Non-HDL Cholesterol Calculated 127 mg/dL (0-129) HDL Cholesterol 62 mg/dL (40-60) Cholesterol/HDL Ratio 3.0 Test 04/09/18 07:53 Glucose (Fingerstick) 158 mg/dL (70-99) Medications Current Medications Sodium Chloride 1,000 ml @ 1,000 mls/hr Q1H IV Last administered on at 19:45; Start 04/07/18 at 17:25; Stop 04/07/18 at 18:24; Status DC Insulin Human Lispro (HumaLOG) 0-5 UNITS TIDWMEALS SQ Last administered on at 08:00; Start 04/08/18 at 08:00 Dextrose (Dextrose 50%-Water Syringe) 12.5 gm PRN Q15MIN PRN IV SEE COMMENTS; Start 04/07/18 at 18:30 Enalaprilat (Vasotec Inj) 1.25 mg PRN Q6HRS PRN IVP ELEVATED BP, SEE COMMENTS; Start 04/07/18 at 18:45 Enoxaparin Sodium (Lovenox 30mg Syringe) 30 mg HS SQ Last administered on 04/07at 21:31; Start 04/07/18 at 21:00; Stop 04/08/18 at 15:40; Status DC Multivitamins 10 ml/Thiamine HCl 100 mg/Folic Acid 1 mg/Sodium Chloride 1,011.2 ml @ 80 mls/hr 1X ONCE IV Last administered on 04/07/18at 20:52; Start 04/07 at 19:00; Stop 04/08/18 at 07:38; Status DC Lisinopril (Prinivil) 10 mg DAILY07 PO ; Start 04/07/18 at 19:00; Stop at 20:31; Status DC Insulin Human Lispro (HumaLOG) 5 units 1X ONCE SQ Last administered on at 20:51; Start 04/07/18 at 20:00; Stop 04/07/18 at 20:01; Status DC Insulin Human Lispro (HumaLOG) 6 units TIDWMEALS SQ Last administered on at 08:01; Start 04/08/18 at 08:00 Donepezil HCl (Aricept) 5 mg DAILY PO Last administered on 04/09/18at 08:01; Start 04/08/18 at 15:30 Aspirin (Sabas Aspirin) 325 mg DAILYWBKFT PO Last administered on 04/09/18at 08 :01; Start 04/08/18 at 16:00 Enoxaparin Sodium (Lovenox 40mg Syringe) 40 mg QHS SQ Last administered on at 21:29; Start 04/08/18 at 21:00 Active Scripts Active Reported Vitamin D3 (Cholecalciferol (Vitamin D3)) 1,000 Unit Tablet 1 Tab PO DAILY Isopto Tears (Hypromellose) 15 Ml Drops 15 Ml OP BID Refresh Optive Eye Drops (Carboxymethylcellulos/Glycerin) 15 Ml Drops 1 Drop EACHEYE BID Trulicity (Dulaglutide) 0.75 Mg/0.5 Ml Pen.injctr 0.75 Mg SQ QSU Levemir Flextouch (Insulin Detemir) 100 Unit/1 Ml Insuln.pen 14 Unit SQ HS Docusate Sodium 100 Mg Capsule 1 Cap PO BID Atorvastatin Calcium 20 Mg Tablet 1 Tab PO DAILY Amlodipine Besylate 10 Mg Tablet 10 Mg PO DAILY Namenda (Memantine Hcl) 10 Mg Tablet 0.5 Tab PO BID Donepezil Hcl 10 Mg Tablet 1 Tab PO DAILY Aspirin Ec (Aspirin) 81 Mg Tablet.dr 1 Tab PO DAILY Loratadine 10 Mg Tablet 1 Tab PO DAILY PRN Miralax (Polyethylene Glycol 3350) 17 Gm Powd.pack 1 Packet PO DAILY PRN Vitals/I & O Vital Sign - Last 24 Hours 04/08/18 04/08/18 04/08/18 04/08/18 11:05 15:00 19:00 20:00 Temp 98.5 97.7 98.0 98.5 97.7 98.0 Pulse 66 62 65 Resp 18 18 18 B/P (MAP) 111/65 (80) 106/73 (84) 167/86 (113) Pulse Ox 100 100 100 O2 Delivery Room Air Room Air Room Air Room Air 04/08/18 04/09/18 04/09/18 04/09/18 22:30 02:53 07:00 07:12 Temp 98.3 97.5 97.9 98.3 97.5 97.9 Pulse 59 65 66 Resp 17 16 16 B/P (MAP) 171/98 (122) 150/85 (106) 139/71 (93) Pulse Ox 100 97 100 O2 Delivery Room Air Room Air Room Air Room Air Intake and Output 04/08/18 04/08/18 04/09/18 15:00 23:00 07:00 Intake Total 1000 ml 600 ml Output Total 200 ml 450 ml 250 ml Balance 800 ml 150 ml -250 ml CINDY RUSSELL MD Apr 09, 2018 10:46
[2018-04-09 11:00] VITALS: BP 135/69
[2018-04-09] MEDS: ASPIRIN ENTERIC COATED 81 MG TABLET.DR. PO SCH (11:16)
[2018-04-09] MEDS: DONEPEZIL HCL 10 MG TABLET. PO SCH (11:17)
[2018-04-09] MEDS: CHOLECALCIFEROL (VITAMIN D3) 1,000 UNIT TABLET PO SCH (11:24)
[2018-04-09] MEDS: MEMANTINE 5 MG TABLET. PO SCH ×2 (11:24→21:13)
[2018-04-09] MEDS: DOCUSATE SODIUM 100 MG CAPSULE. PO SCH ×2 (11:24→21:14)
[2018-04-09] MEDS: amLODIPine BESYLATE 10 MG TABLET PO SCH (11:25)
[2018-04-09] MEDS: POLYVINYL ALCOHOL 1.4% OPHTH SOLUTION 15ML BOTTLE. OU SCH ×2 (11:25→21:00)
--- NOTE | 2018-04-09 12:01 | PDOC ---
Renal-Progress Notes Subjective Notes Notes NONE History of Present Illness Hx of present illness STABLE Vitals Vitals Vital Signs Date Time Temp Pulse Resp B/P (MAP) Pulse Ox O2 Delivery O2 Flow Rate FiO2 04/09/18 11:25 68 135/69 04/09/18 11:00 97.9 18 100 Room Air 97.9 Weight Weight [ ] I.O. Intake and Output Intake and Output 04/09/18 07:00 Intake Total 1600 ml Output Total 900 ml Balance 700 ml Intake Oral 600 ml IV Total 1000 ml Output Urine Total 900 ml # Voids 3 Labs Labs Laboratory Tests Test 04/08/18 16:04 04/08/18 20:30 04/09/18 03:40 04/09/18 07:53 Glucose (Fingerstick) 158 mg/dL (70-99) 127 mg/dL (70-99) 158 mg/dL (70-99) White Blood Count 5.1 x10^3/uL (4.0-11.0) Red Blood Count 4.00 x10^6/uL (4.30-5.70) Hemoglobin 12.1 g/dL (13.0-17.5) Hematocrit 34.8 % (39.0-53.0) Mean Corpuscular Volume 87 fL (79-100) Mean Corpuscular Hemoglobin 30 pg (25-35) Mean Corpuscular Hemoglobin Concent 35 g/dL (31-37) Red Cell Distribution Width 15.0 % (11.5-14.5) Platelet Count 252 x10^3/uL (140-400) Neutrophils (%) (Auto) 43 % (31-73) Lymphocytes (%) (Auto) 50 % (24-48) Monocytes (%) (Auto) 5 % (0-9) Eosinophils (%) (Auto) 1 % (0-3) Basophils (%) (Auto) 1 % (0-3) Neutrophils # (Auto) 2.2 x10^3uL (1.8-7.7) Lymphocytes # (Auto) 2.6 x10^3/uL (1.0-4.8) Monocytes # (Auto) 0.2 x10^3/uL (0.0-1.1) Eosinophils # (Auto) 0.1 x10^3/uL (0.0-0.7) Basophils # (Auto) 0.1 x10^3/uL (0.0-0.2) Sodium Level 139 mmol/L (136-145) Potassium Level 4.0 mmol/L (3.5-5.1) Chloride Level 106 mmol/L (98-107) Carbon Dioxide Level 24 mmol/L (21-32) Anion Gap 9 (6-14) Blood Urea Nitrogen 17 mg/dL (8-26) Creatinine 1.4 mg/dL (0.7-1.3) Estimated GFR (Cockcroft-Gault) 60.1 Glucose Level 178 mg/dL (70-99) Calcium Level 8.8 mg/dL (8.5-10.1) Phosphorus Level 2.8 mg/dL (2.6-4.7) Albumin 3.2 g/dL (3.4-5.0) Triglycerides Level 58 mg/dL (0-150) Cholesterol Level 189 mg/dL (0-200) LDL Cholesterol, Calculated 115 mg/dL (0-100) VLDL Cholesterol, Calculated 12 mg/dL (0-40) Non-HDL Cholesterol Calculated 127 mg/dL (0-129) HDL Cholesterol 62 mg/dL (40-60) Cholesterol/HDL Ratio 3.0 Test 04/09/18 11:24 Glucose (Fingerstick) 130 mg/dL (70-99) Review of Systems Constitutional: yes: weakness, alert, oriented Ears/Nose/Throat: Yes: no symptom reported Eyes: Yes: no symptom reported Pulmonary: Yes no symptom reported Cardiovascular: Yes no symptom reported Gastrointestional: Yes: no symptom reported Genitourinary: Yes: no symptom reported Musculoskeletal: Yes: no symptom reported Skin: Yes no symptom reported Psychiatric/Neurological: Yes: no symptom reported Endocrine: Yes: no symptom reported Physical Exam General Appearance: no apparent distress Skin: warm Respiratory: decreased breath sounds Heart: S1S2 Abdomen: soft, bowel sounds present Genitourinary: bladder flat Extremities: pulses present Neurology: alert Assessment Assessment IMP KENNEDY-BETTER WITH CR DOWN TO 1.4 DEHYDRATION HYPERGLYCEMIA-BETTER PLAN ENC PO CONT TO AVOID JACQUELIN-I USE AT HOME WILL FOLLOW MARGARITO RASHEED MD Apr 09, 2018 12:01
[2018-04-09 14:55] VITALS: BP 144/74
--- NOTE | 2018-04-09 15:35 | PDOC ---
PROGRESS NOTES Assessment Assessment Metabolic encephalopathy. Lethargy. Hyperglycemia, glucose level 475. Acute renal failure. DM, poorly controlled. HTN. HLD. Dementia. RECOMMENDATIONS/PLAN: Control hyperglycemia. Treat medical diseases. EEG. Consulted Nephrology. OT/PT. HCT: No acute findings. HISTORY OF THE PRESENT ILLNESS: 72-y-old AA male patient with above medical diseases was noted mental status changes by his family and manager of care, so EMS was called and he was revealed hyperglycemia to brought to the ER of [facility]. His glucose level was 475. No focalized sensory or motor deficits noted. His mental status improved on 04/09/18. Past Medical History Cardiovascular: HTN, Hyperlipidemia CENTRAL NERVOUS SYSTEM: Dementia GI: Constipation Renal/: No pertinent hx Endocrine: Diabetes Family History Hypertension PAST SURGERY HISTORY: Tonsillectomy, Appendectomy. ALLERGY: Lisinopril. MEDICATIONS: Refer to [facility] SOCIAL HISTORY: Lives at home. Denies smoking, drinking, and illicit drug use. REVIEW OF SYSTEMS: Constitutional: No malnutrition, weight loss, cachexia. Head: No traumatic brain or head injury. Skin: No edema, or rash. Ear: No infection Eyes: No vision loss or color blindness. Nose: No bleeding or purulent discharges. Hearing: No hearing decrease. Neck: No recent injury. Cardiac: HTN, HLD. Pulmonary: No COPD. GI: No GI ulcer, GI bleeding. Urinary/genital: UTI. Endocrinologic: Diabetes Mellitus. Skeletomuscular: Generalized weakness. Neurological: see HP. Psychiatric: Denies drug use/abuse. Otherwise, not [id number] review of systems. PHYSICAL EXAMINATION: General appearance is in subacute distress. HEENT: Normocephalic and nontraumatic. Eyes, nose, ears, and throat are unremarkable. Neck is supple. No lymphadenopathy. No crepitus. Cardiovascular: S1, S2, regular rate and rhythm. Pulmonary: Clear to auscultation bilaterally. Abdomen: Bowel sounds are positive. Extremities: No rash, lesions, or edema. No restriction of range of motion NEUROLOGICAL EXAMINATION: Awake. Able to understand a few questions. Not oriented to time, but knew place and person. PERRL. EOMI. CN: no focal findings. Muscle tone: within normal. Muscle strength: 4+ DTR: 2 UE, 1+ at knee. Plantar reflex: Neutral response bilaterally Gait: not examined in bed. Sensory exam: no abnormal findings. Not other acute cerebellar signs elicited. F-T-N test not performed due to not follow commands. Objective Objective Vital Signs Date Time Temp Pulse Resp B/P (MAP) Pulse Ox O2 Delivery O2 Flow Rate FiO2 04/09/18 14:55 97.9 65 16 144/74 (97) 100 Room Air 97.9 Intake and Output 04/09/18 07:00 Intake Total 1600 ml Output Total 900 ml Balance 700 ml Intake Oral 600 ml IV Total 1000 ml Output Urine Total 900 ml # Voids 3 Vitals Signs Vitals VS - Last 72 Hours, by Label Date Time Temp Pulse Resp B/P (MAP) Pulse Ox O2 Delivery O2 Flow Rate FiO2 04/09/18 14:55 97.9 65 16 144/74 (97) 100 Room Air 97.9 04/09/18 11:25 68 135/69 04/09/18 11:00 97.9 68 18 135/69 (91) 100 Room Air 97.9 04/09/18 07:12 Room Air 04/09/18 07:00 97.9 66 16 139/71 (93) 100 Room Air 97.9 04/09/18 02:53 97.5 65 16 150/85 (106) 97 Room Air 97.5 04/08/18 22:30 98.3 59 17 171/98 (122) 100 Room Air 98.3 04/08/18 20:00 Room Air 04/08/18 19:00 98.0 65 18 167/86 (113) 100 Room Air 98.0 04/08/18 15:00 97.7 62 18 106/73 (84) 100 Room Air 97.7 04/08/18 11:05 98.5 66 18 111/65 (80) 100 Room Air 98.5 04/08/18 08:00 Room Air 04/08/18 07:03 97.9 58 18 139/76 (97) 100 Room Air 97.9 Laboratory Laboratory Laboratory Tests Test 04/08/18 16:04 04/08/18 20:30 04/09/18 03:40 04/09/18 07:53 Glucose (Fingerstick) 158 mg/dL (70-99) 127 mg/dL (70-99) 158 mg/dL (70-99) White Blood Count 5.1 x10^3/uL (4.0-11.0) Red Blood Count 4.00 x10^6/uL (4.30-5.70) Hemoglobin 12.1 g/dL (13.0-17.5) Hematocrit 34.8 % (39.0-53.0) Mean Corpuscular Volume 87 fL (79-100) Mean Corpuscular Hemoglobin 30 pg (25-35) Mean Corpuscular Hemoglobin Concent 35 g/dL (31-37) Red Cell Distribution Width 15.0 % (11.5-14.5) Platelet Count 252 x10^3/uL (140-400) Neutrophils (%) (Auto) 43 % (31-73) Lymphocytes (%) (Auto) 50 % (24-48) Monocytes (%) (Auto) 5 % (0-9) Eosinophils (%) (Auto) 1 % (0-3) Basophils (%) (Auto) 1 % (0-3) Neutrophils # (Auto) 2.2 x10^3uL (1.8-7.7) Lymphocytes # (Auto) 2.6 x10^3/uL (1.0-4.8) Monocytes # (Auto) 0.2 x10^3/uL (0.0-1.1) Eosinophils # (Auto) 0.1 x10^3/uL (0.0-0.7) Basophils # (Auto) 0.1 x10^3/uL (0.0-0.2) Sodium Level 139 mmol/L (136-145) Potassium Level 4.0 mmol/L (3.5-5.1) Chloride Level 106 mmol/L (98-107) Carbon Dioxide Level 24 mmol/L (21-32) Anion Gap 9 (6-14) Blood Urea Nitrogen 17 mg/dL (8-26) Creatinine 1.4 mg/dL (0.7-1.3) Estimated GFR (Cockcroft-Gault) 60.1 Glucose Level 178 mg/dL (70-99) Calcium Level 8.8 mg/dL (8.5-10.1) Phosphorus Level 2.8 mg/dL (2.6-4.7) Albumin 3.2 g/dL (3.4-5.0) Triglycerides Level 58 mg/dL (0-150) Cholesterol Level 189 mg/dL (0-200) LDL Cholesterol, Calculated 115 mg/dL (0-100) VLDL Cholesterol, Calculated 12 mg/dL (0-40) Non-HDL Cholesterol Calculated 127 mg/dL (0-129) HDL Cholesterol 62 mg/dL (40-60) Cholesterol/HDL Ratio 3.0 Test 04/09/18 11:24 Glucose (Fingerstick) 130 mg/dL (70-99) Medication Medications Current Medications Amlodipine Besylate (Norvasc) 10 mg DAILY PO Last administered on 04/09/18at 11 :25; Start 04/09/18 at 12:00 Artificial Tears (Artificial Tears) 1 drop BID OU Last administered on at 11:25; Start 04/09/18 at 12:00 Aspirin (Sabas Aspirin) 325 mg DAILYWBKFT PO Last administered on 04/09/18at 08 :01; Start 04/08/18 at 16:00 Aspirin (Ecotrin) 81 mg DAILY PO ; Start 04/09/18 at 12:00 Atorvastatin Calcium (Lipitor) 20 mg QHS PO ; Start 04/09/18 at 21:00 Cetirizine HCl (ZyrTEC) 10 mg DAILY PRN PO ALLERGIES; Start 04/10/18 at 09:00 Docusate Sodium (Colace) 100 mg BID PO Last administered on 04/09/18at 11:24; Start 04/09/18 at 12:00 Donepezil HCl (Aricept) 10 mg DAILY PO ; Start 04/09/18 at 12:00 Enoxaparin Sodium (Lovenox 40mg Syringe) 40 mg QHS SQ Last administered on at 21:29; Start 04/08/18 at 21:00 Insulin Glargine (Lantus) 14 units QHS SQ ; Start 04/09/18 at 21:00 Memantine (Namenda) 5 mg BID PO Last administered on 04/09/18at 11:24; Start 04/09/18 at 12:00 Non-Formulary Medication (Dulaglutide (Trulicity)) 0.75 mg QSU SQ ; Start 04/12 at 16:00; Status UNV Non-Formulary Medication (Hypromellose (Isopto Tears)) 15 ml BID OP ; Start at 21:00; Status UNV Polyethylene Glycol (miraLAX PACKET) 17 gm PRN DAILY PRN PO CONSTIPATION; Start 04/10/18 at 09:00 Vitamin D (Vitamin D3) 1,000 unit DAILY PO Last administered on 04/09/18at 11: 24; Start 04/09/18 at 12:00 Comment Review of Relevant I have reviewed the following items radha (where applicable) has been applied. DEVYN JEFFERS MD Apr 09, 2018 15:35
--- NOTE | 2018-04-09 17:34 | EEG ---
DATE OF SERVICE: 04/08/2018 ELECTROENCEPHALOGRAM NUMBER: [id number]. OBJECTIVE: This is a 72-year-old male patient who has mental status changes, and hyperglycemia. EEG was requested to evaluate cerebral activity and help rule out subclinical seizures. METHODS: Twenty electrodes were applied according to the international 10-20 electrode placement system. EKG monitoring, hyperventilation, intermittent photic stimulation, monopolar and bipolar montages are routinely utilized. The record was obtained on a digital system with video monitoring. FINDINGS: 1. Background: The patient was recorded in the awake, drowsy, and sleep states. The overall background amplitude is variable. No well-organized posterior dominant rhythm is observed. The overall background rhythm is with diffuse slowing in the theta and delta frequencies throughout the entire recording. 2. Abnormalities: No specific epileptiform discharge or electrographic seizure is seen. Diffuse slowing in the theta and delta frequencies throughout the entire recording. 3. Activation: Hyperventilation was not performed because the patient was unable to perform the technique. Intermittent photic stimulation was performed with photic driving. No specific epileptiform discharge or electrographic seizure induced. IMPRESSION: This electroencephalogram is an abnormal study for the awake, drowsy, and sleep states. No well-organized posterior dominant rhythm is observed. The overall background rhythm is with diffuse slowing in the theta and delta frequencies throughout the entire recording. No focal, lateralizing, specific epileptiform discharge, or electrographic seizure is seen. This pattern of electroencephalogram may suggest encephalopathy. DEVYN JEFFERS MD DR: REGGIE/trinh JOB#: [id number] / [id number] EMILIA
[2018-04-09 19:00] VITALS: BP 124/80
[2018-04-09] MEDS ORDERED: HYPROMELLOSE OP SCH (21:00)
[2018-04-09] MEDS: ENOXAPARIN 40 MG/0.4 ML SYRINGE. SQ SCH (21:14)
[2018-04-09] MEDS: ATORVASTATIN CALCIUM 20 MG TABLET PO SCH (21:14)
[2018-04-09] MEDS: INSULIN GLARGINE 300 UNITS/3 ML INSULN.PEN. SQ SCH (21:24)
[2018-04-09 23:00] VITALS: BP 112/75
[2018-04-10 03:00] VITALS: BP 119/72
[2018-04-10 07:00] VITALS: BP 113/61
[2018-04-10] MEDS: CHOLECALCIFEROL (VITAMIN D3) 1,000 UNIT TABLET PO SCH (07:55)
[2018-04-10] MEDS: ASPIRIN ENTERIC COATED 81 MG TABLET.DR. PO SCH (07:55)
[2018-04-10] MEDS: amLODIPine BESYLATE 10 MG TABLET PO SCH (07:55)
[2018-04-10] MEDS: DONEPEZIL HCL 10 MG TABLET. PO SCH (07:56)
[2018-04-10] MEDS: DOCUSATE SODIUM 100 MG CAPSULE. PO SCH ×2 (07:56→21:10)
[2018-04-10] MEDS: MEMANTINE 5 MG TABLET. PO SCH ×2 (07:56→21:10)
[2018-04-10] MEDS: ASPIRIN 325 MG TABLET PO SCH (07:58)
[2018-04-10] MEDS: POLYVINYL ALCOHOL 1.4% OPHTH SOLUTION 15ML BOTTLE. OU SCH ×2 (07:58→22:53)
[2018-04-10] MEDS: INSULIN LISPRO 300 UNITS/3 ML INSULN.PEN. SQ SCH ×6 (08:00→18:10)
[2018-04-10] MEDS ORDERED: POLYETHYLENE GLYCOL 3350 17 GM PACKET. PO PRN (09:00)
[2018-04-10] MEDS ORDERED: CETIRIZINE HCL 10 MG TABLET. PO PRN (09:00)
[2018-04-10 09:39] LABS: CREATININE 1.4 mg/dL (0.7-1.3); GFR 60.1; POTASSIUM 3.9 mmol/L (3.5-5.1)
[2018-04-10 11:00] VITALS: BP 114/68
--- NOTE | 2018-04-10 11:10 | PDOC ---
Renal-Progress Notes Subjective Notes Notes NONE History of Present Illness Hx of present illness STABLE Vitals Vitals Vital Signs Date Time Temp Pulse Resp B/P (MAP) Pulse Ox O2 Delivery O2 Flow Rate FiO2 04/10/18 07:55 56 113/61 04/10/18 07:00 98.1 19 100 Room Air 98.1 Weight Weight [ ] I.O. Intake and Output Intake and Output 04/10/18 07:00 Intake Total 350 ml Output Total 100 ml Balance 250 ml Intake Oral 350 ml Output Urine Total 100 ml # Voids 3 Labs Labs Laboratory Tests Test 04/09/18 11:24 04/09/18 15:58 04/09/18 20:10 04/10/18 07:39 Glucose (Fingerstick) 130 mg/dL (70-99) 193 mg/dL (70-99) 174 mg/dL (70-99) 53 mg/dL (70-99) Test 04/10/18 08:45 Sodium Level 141 mmol/L (136-145) Potassium Level 3.9 mmol/L (3.5-5.1) Chloride Level 105 mmol/L (98-107) Carbon Dioxide Level 27 mmol/L (21-32) Anion Gap 9 (6-14) Blood Urea Nitrogen 15 mg/dL (8-26) Creatinine 1.4 mg/dL (0.7-1.3) Estimated GFR (Cockcroft-Gault) 60.1 Glucose Level 89 mg/dL (70-99) Calcium Level 9.0 mg/dL (8.5-10.1) Review of Systems Constitutional: yes: weakness, alert, oriented Ears/Nose/Throat: Yes: no symptom reported Eyes: Yes: no symptom reported Pulmonary: Yes no symptom reported Cardiovascular: Yes no symptom reported Gastrointestional: Yes: no symptom reported Genitourinary: Yes: no symptom reported Musculoskeletal: Yes: no symptom reported Skin: Yes no symptom reported Psychiatric/Neurological: Yes: no symptom reported Endocrine: Yes: no symptom reported Physical Exam General Appearance: no apparent distress Skin: warm Respiratory: decreased breath sounds Heart: S1S2 Abdomen: soft, bowel sounds present Genitourinary: bladder flat Extremities: pulses present Neurology: alert Assessment Assessment IMP KENNEDY-BETTER WITH CR DOWN TO 1.4 DEHYDRATION HYPERGLYCEMIA-BETTER PLAN ENC PO CONT TO AVOID JACQUELIN-I USE AT HOME WILL FOLLOW MARGARITO RASHEED MD Apr 10, 2018 11:10
--- NOTE | 2018-04-10 12:55 | PDOC ---
PROGRESS NOTES Chief Complaint Chief Complaint patient is demented and unable to provide insightful words, he does make some passing comments mostly jovial, no concerns, 1 on 1 History of Present Illness History of Present Illness Assessment/Plan Assessment/Plan impression 1. advanced dementia 2. uncontrolled diabetes, unsure of duration of dx 3. high fall risk 4. gait instability 5, severe self care deficits 6. acute renal failure 7. uncontrolled hypertension 8. abnormal weight loss of 100# in 12 months by SO hx in room today 9. dehydration plan will dc 1 on 1 seroquel tonight anticiapte placement in dementia unit iv enalapril lisinopril 5mg po bid tele admit ss insulin sitter neurology consult iv fluid support ct head noted a1c sq lovenox Vitals Vitals Vital Signs Date Time Temp Pulse Resp B/P (MAP) Pulse Ox O2 Delivery O2 Flow Rate FiO2 04/10/18 11:00 97.7 68 20 114/68 (83) 99 Room Air 97.7 Physical Exam Physical Exam EENT: PERRL, EOMI. Conjunctivae normal color, sclerae non-icteric; dry mucous membranes. NECK: Supple, non-tender; no meningismus. LUNGS: Lungs CTA, breathing even and unlabored. Normal air movement. HEART: Regular rate and rhythm, no murmur CHEST: No deformity; non-tender ABDOMEN: The abdomen is soft, and non-tender, no masses or bruits. EXTREM: Normal ROM; no deformity, no calf tenderness. Normal pulses palpable in all extremities. There is no pedal edema. SKIN: No rash; no diaphoresis NEURO: Alert; normal speech, impaired cognition consistent with underlying dementia, patient moves all extremities gait looks unsteady. General: Alert, Cooperative, mild distress HEENT: Atraumatic Heart: S1S2 Breasts: Not examined Abdomen: Soft Rectal Exam: not examined Neuro: Cranial nerves 3-12 NL General: Cooperative, mild distress Heart: Regular rate, No murmurs Lungs: Clear Abdomen: Normal bowel sounds, Soft, No tenderness, No hepatosplenomegaly Extremities: No clubbing, No cyanosis Skin: No breakdown Labs LABS Laboratory Tests Test 04/09/18 15:58 04/09/18 20:10 04/10/18 07:39 04/10/18 08:09 Glucose (Fingerstick) 193 mg/dL (70-99) 174 mg/dL (70-99) 53 mg/dL (70-99) 101 mg/dL (70-99) Test 04/10/18 08:45 04/10/18 11:26 Sodium Level 141 mmol/L (136-145) Potassium Level 3.9 mmol/L (3.5-5.1) Chloride Level 105 mmol/L (98-107) Carbon Dioxide Level 27 mmol/L (21-32) Anion Gap 9 (6-14) Blood Urea Nitrogen 15 mg/dL (8-26) Creatinine 1.4 mg/dL (0.7-1.3) Estimated GFR (Cockcroft-Gault) 60.1 Glucose Level 89 mg/dL (70-99) Calcium Level 9.0 mg/dL (8.5-10.1) Glucose (Fingerstick) 190 mg/dL (70-99) Assessment and Plan Assessmemt and Plan Problems Medical Problems: (1) Dementia Status: Acute (2) Hyperglycemia Status: Acute (3) Renal failure Status: Acute Comment Review of Relevant I have reviewed the following items radha (where applicable) has been applied. Labs Laboratory Tests Test 04/08/18 16:04 04/08/18 20:30 04/09/18 03:40 04/09/18 07:53 Glucose (Fingerstick) 158 mg/dL (70-99) 127 mg/dL (70-99) 158 mg/dL (70-99) White Blood Count 5.1 x10^3/uL (4.0-11.0) Red Blood Count 4.00 x10^6/uL (4.30-5.70) Hemoglobin 12.1 g/dL (13.0-17.5) Hematocrit 34.8 % (39.0-53.0) Mean Corpuscular Volume 87 fL (79-100) Mean Corpuscular Hemoglobin 30 pg (25-35) Mean Corpuscular Hemoglobin Concent 35 g/dL (31-37) Red Cell Distribution Width 15.0 % (11.5-14.5) Platelet Count 252 x10^3/uL (140-400) Neutrophils (%) (Auto) 43 % (31-73) Lymphocytes (%) (Auto) 50 % (24-48) Monocytes (%) (Auto) 5 % (0-9) Eosinophils (%) (Auto) 1 % (0-3) Basophils (%) (Auto) 1 % (0-3) Neutrophils # (Auto) 2.2 x10^3uL (1.8-7.7) Lymphocytes # (Auto) 2.6 x10^3/uL (1.0-4.8) Monocytes # (Auto) 0.2 x10^3/uL (0.0-1.1) Eosinophils # (Auto) 0.1 x10^3/uL (0.0-0.7) Basophils # (Auto) 0.1 x10^3/uL (0.0-0.2) Sodium Level 139 mmol/L (136-145) Potassium Level 4.0 mmol/L (3.5-5.1) Chloride Level 106 mmol/L (98-107) Carbon Dioxide Level 24 mmol/L (21-32) Anion Gap 9 (6-14) Blood Urea Nitrogen 17 mg/dL (8-26) Creatinine 1.4 mg/dL (0.7-1.3) Estimated GFR (Cockcroft-Gault) 60.1 Glucose Level 178 mg/dL (70-99) Calcium Level 8.8 mg/dL (8.5-10.1) Phosphorus Level 2.8 mg/dL (2.6-4.7) Albumin 3.2 g/dL (3.4-5.0) Triglycerides Level 58 mg/dL (0-150) Cholesterol Level 189 mg/dL (0-200) LDL Cholesterol, Calculated 115 mg/dL (0-100) VLDL Cholesterol, Calculated 12 mg/dL (0-40) Non-HDL Cholesterol Calculated 127 mg/dL (0-129) HDL Cholesterol 62 mg/dL (40-60) Cholesterol/HDL Ratio 3.0 Test 04/09/18 11:24 04/09/18 15:58 04/09/18 20:10 04/10/18 07:39 Glucose (Fingerstick) 130 mg/dL (70-99) 193 mg/dL (70-99) 174 mg/dL (70-99) 53 mg/dL (70-99) Test 04/10/18 08:09 04/10/18 08:45 04/10/18 11:26 Glucose (Fingerstick) 101 mg/dL (70-99) 190 mg/dL (70-99) Sodium Level 141 mmol/L (136-145) Potassium Level 3.9 mmol/L (3.5-5.1) Chloride Level 105 mmol/L (98-107) Carbon Dioxide Level 27 mmol/L (21-32) Anion Gap 9 (6-14) Blood Urea Nitrogen 15 mg/dL (8-26) Creatinine 1.4 mg/dL (0.7-1.3) Estimated GFR (Cockcroft-Gault) 60.1 Glucose Level 89 mg/dL (70-99) Calcium Level 9.0 mg/dL (8.5-10.1) Laboratory Tests Test 04/09/18 15:58 04/09/18 20:10 04/10/18 07:39 04/10/18 08:09 Glucose (Fingerstick) 193 mg/dL (70-99) 174 mg/dL (70-99) 53 mg/dL (70-99) 101 mg/dL (70-99) Test 04/10/18 08:45 04/10/18 11:26 Sodium Level 141 mmol/L (136-145) Potassium Level 3.9 mmol/L (3.5-5.1) Chloride Level 105 mmol/L (98-107) Carbon Dioxide Level 27 mmol/L (21-32) Anion Gap 9 (6-14) Blood Urea Nitrogen 15 mg/dL (8-26) Creatinine 1.4 mg/dL (0.7-1.3) Estimated GFR (Cockcroft-Gault) 60.1 Glucose Level 89 mg/dL (70-99) Calcium Level 9.0 mg/dL (8.5-10.1) Glucose (Fingerstick) 190 mg/dL (70-99) Medications Current Medications Sodium Chloride 1,000 ml @ 1,000 mls/hr Q1H IV Last administered on at 19:45; Start 04/07/18 at 17:25; Stop 04/07/18 at 18:24; Status DC Insulin Human Lispro (HumaLOG) 0-5 UNITS TIDWMEALS SQ Last administered on at 11:36; Start 04/08/18 at 08:00 Dextrose (Dextrose 50%-Water Syringe) 12.5 gm PRN Q15MIN PRN IV SEE COMMENTS Last administered on 04/10/18at 07:53; Start 04/07/18 at 18:30 Enalaprilat (Vasotec Inj) 1.25 mg PRN Q6HRS PRN IVP ELEVATED BP, SEE COMMENTS; Start 04/07/18 at 18:45 Enoxaparin Sodium (Lovenox 30mg Syringe) 30 mg HS SQ Last administered on 04/07at 21:31; Start 04/07/18 at 21:00; Stop 04/08/18 at 15:40; Status DC Multivitamins 10 ml/Thiamine HCl 100 mg/Folic Acid 1 mg/Sodium Chloride 1,011.2 ml @ 80 mls/hr 1X ONCE IV Last administered on 04/07/18at 20:52; Start 04/07 at 19:00; Stop 04/08/18 at 07:38; Status DC Lisinopril (Prinivil) 10 mg DAILY07 PO ; Start 04/07/18 at 19:00; Stop at 20:31; Status DC Insulin Human Lispro (HumaLOG) 5 units 1X ONCE SQ Last administered on at 20:51; Start 04/07/18 at 20:00; Stop 04/07/18 at 20:01; Status DC Insulin Human Lispro (HumaLOG) 6 units TIDWMEALS SQ Last administered on at 11:36; Start 04/08/18 at 08:00 Donepezil HCl (Aricept) 5 mg DAILY PO Last administered on 04/09/18at 08:01; Start 04/08/18 at 15:30; Stop 04/09/18 at 20:42; Status DC Aspirin (Sabas Aspirin) 325 mg DAILYWBKFT PO Last administered on 04/09/18at 08 :01; Start 04/08/18 at 16:00 Enoxaparin Sodium (Lovenox 40mg Syringe) 40 mg QHS SQ Last administered on at 21:14; Start 04/08/18 at 21:00 Amlodipine Besylate (Norvasc) 10 mg DAILY PO Last administered on 04/10/18at 07 :55; Start 04/09/18 at 12:00 Aspirin (Ecotrin) 81 mg DAILY PO Last administered on 04/10/18at 07:55; Start 04/09/18 at 12:00 Atorvastatin Calcium (Lipitor) 20 mg QHS PO Last administered on 04/09/18at 21: 14; Start 04/09/18 at 21:00 Vitamin D (Vitamin D3) 1,000 unit DAILY PO Last administered on 04/10/18at 07: 55; Start 04/09/18 at 12:00 Docusate Sodium (Colace) 100 mg BID PO Last administered on 04/10/18at 07:56; Start 04/09/18 at 12:00 Artificial Tears (Artificial Tears) 1 drop BID OU Last administered on at 07:58; Start 04/09/18 at 12:00 Donepezil HCl (Aricept) 10 mg DAILY PO Last administered on 04/10/18at 07:56; Start 04/09/18 at 12:00 Non-Formulary Medication (Dulaglutide (Trulicity)) 0.75 mg QSU SQ ; Start 04/12 at 16:00; Status UNV Non-Formulary Medication (Hypromellose (Isopto Tears)) 15 ml BID OP ; Start at 21:00; Status UNV Insulin Glargine (Lantus) 14 units QHS SQ Last administered on 04/09/18at 21:24 ; Start 04/09/18 at 21:00 Cetirizine HCl (ZyrTEC) 10 mg DAILY PRN PO ALLERGIES; Start 04/10/18 at 09:00 Memantine (Namenda) 5 mg BID PO Last administered on 04/10/18at 07:56; Start 04/09/18 at 12:00 Polyethylene Glycol (miraLAX PACKET) 17 gm PRN DAILY PRN PO CONSTIPATION; Start 04/10/18 at 09:00 Active Scripts Active Reported Vitamin D3 (Cholecalciferol (Vitamin D3)) 1,000 Unit Tablet 1 Tab PO DAILY Isopto Tears (Hypromellose) 15 Ml Drops 15 Ml OP BID Refresh Optive Eye Drops (Carboxymethylcellulos/Glycerin) 15 Ml Drops 1 Drop EACHEYE BID Trulicity (Dulaglutide) 0.75 Mg/0.5 Ml Pen.injctr 0.75 Mg SQ QSU Levemir Flextouch (Insulin Detemir) 100 Unit/1 Ml Insuln.pen 14 Unit SQ HS Docusate Sodium 100 Mg Capsule 1 Cap PO BID Atorvastatin Calcium 20 Mg Tablet 1 Tab PO DAILY Amlodipine Besylate 10 Mg Tablet 10 Mg PO DAILY Namenda (Memantine Hcl) 10 Mg Tablet 0.5 Tab PO BID Donepezil Hcl 10 Mg Tablet 1 Tab PO DAILY Aspirin Ec (Aspirin) 81 Mg Tablet.dr 1 Tab PO DAILY Loratadine 10 Mg Tablet 1 Tab PO DAILY PRN Miralax (Polyethylene Glycol 3350) 17 Gm Powd.pack 1 Packet PO DAILY PRN Vitals/I & O Vital Sign - Last 24 Hours 04/09/18 04/09/18 04/09/18 04/09/18 14:55 19:00 20:00 23:00 Temp 97.9 97.9 97.6 97.9 97.9 97.6 Pulse 65 67 70 Resp 16 18 18 B/P (MAP) 144/74 (97) 124/80 (95) 112/75 (87) Pulse Ox 100 100 98 O2 Delivery Room Air Room Air Room Air Room Air 04/10/18 04/10/18 04/10/18 04/10/18 03:00 07:00 07:55 11:00 Temp 97.9 98.1 97.7 97.9 98.1 97.7 Pulse 72 56 56 68 Resp 18 19 20 B/P (MAP) 119/72 (88) 113/61 (78) 113/61 114/68 (83) Pulse Ox 99 100 99 O2 Delivery Room Air Room Air Room Air Intake and Output 04/09/18 04/09/18 04/10/18 15:00 23:00 07:00 Intake Total 100 ml 250 ml Output Total 100 ml Balance 0 ml 250 ml RYDER BOWLING MD Apr 10, 2018 12:55
[2018-04-10 15:00] VITALS: BP 130/67
--- NOTE | 2018-04-10 16:07 | PDOC ---
PROGRESS NOTES Assessment Assessment Metabolic encephalopathy. Lethargy. Hyperglycemia, glucose level 475. Acute renal failure. DM, poorly controlled. HTN. HLD. Dementia. RECOMMENDATIONS/PLAN: Control hyperglycemia. Treat medical diseases. Consulted Nephrology. OT/PT. HCT: No acute findings. EEG on 04/08/18: Encephalopathy. HISTORY OF THE PRESENT ILLNESS: 72-y-old AA male patient with above medical diseases was noted mental status changes by his family and urgent care physician assistant, so EMS was called and he was revealed hyperglycemia to brought to the ER of [facility]. His glucose level was 475. No focalized sensory or motor deficits noted. His mental status improved on 04/09/18. Lethargy resolved on 04/10/18. Past Medical History Cardiovascular: HTN, Hyperlipidemia CENTRAL NERVOUS SYSTEM: Dementia GI: Constipation Renal/: No pertinent hx Endocrine: Diabetes Family History Hypertension PAST SURGERY HISTORY: Tonsillectomy, Appendectomy. ALLERGY: Lisinopril. MEDICATIONS: Refer to [facility] SOCIAL HISTORY: Lives at home. Denies smoking, drinking, and illicit drug use. REVIEW OF SYSTEMS: Constitutional: No malnutrition, weight loss, cachexia. Head: No traumatic brain or head injury. Skin: No edema, or rash. Ear: No infection Eyes: No vision loss or color blindness. Nose: No bleeding or purulent discharges. Hearing: No hearing decrease. Neck: No recent injury. Cardiac: HTN, HLD. Pulmonary: No COPD. GI: No GI ulcer, GI bleeding. Urinary/genital: UTI. Endocrinologic: Diabetes Mellitus. Skeletomuscular: Generalized weakness. Neurological: see HP. Psychiatric: Denies drug use/abuse. Otherwise, not -vukvj review of systems. PHYSICAL EXAMINATION: General appearance is in subacute distress. HEENT: Normocephalic and nontraumatic. Eyes, nose, ears, and throat are unremarkable. Neck is supple. No lymphadenopathy. No crepitus. Cardiovascular: S1, S2, regular rate and rhythm. Pulmonary: Clear to auscultation bilaterally. Abdomen: Bowel sounds are positive. Extremities: No rash, lesions, or edema. No restriction of range of motion NEUROLOGICAL EXAMINATION: Awake. Sitting in chair. Able to understand a few questions. Not fully oriented to time, but knew place and person. PERRL. EOMI. CN: no focal findings. Muscle tone: within normal. Muscle strength: 4+ DTR: 2 UE, 1+ at knee. Plantar reflex: Neutral response bilaterally Gait: not examined in chair. Sensory exam: no abnormal findings. Not acute cerebellar signs elicited. F-T-N test fine.. Objective Objective Vital Signs Date Time Temp Pulse Resp B/P (MAP) Pulse Ox O2 Delivery O2 Flow Rate FiO2 04/10/18 15:00 97.6 65 16 130/67 (88) 100 Room Air 97.6 Intake and Output 04/10/18 07:00 Intake Total 350 ml Output Total 100 ml Balance 250 ml Intake Oral 350 ml Output Urine Total 100 ml # Voids 3 Vitals Signs Vitals VS - Last 72 Hours, by Label Date Time Temp Pulse Resp B/P (MAP) Pulse Ox O2 Delivery O2 Flow Rate FiO2 04/10/18 15:00 97.6 65 16 130/67 (88) 100 Room Air 97.6 04/10/18 11:00 97.7 68 20 114/68 (83) 99 Room Air 97.7 04/10/18 07:55 56 113/61 04/10/18 07:00 98.1 56 19 113/61 (78) 100 Room Air 98.1 04/10/18 03:00 97.9 72 18 119/72 (88) 99 Room Air 97.9 04/09/18 23:00 97.6 70 18 112/75 (87) 98 Room Air 97.6 04/09/18 20:00 Room Air 04/09/18 19:00 97.9 67 18 124/80 (95) 100 Room Air 97.9 04/09/18 14:55 97.9 65 16 144/74 (97) 100 Room Air 97.9 04/09/18 11:25 68 135/69 04/09/18 11:00 97.9 68 18 135/69 (91) 100 Room Air 97.9 04/09/18 07:12 Room Air 04/09/18 07:00 97.9 66 16 139/71 (93) 100 Room Air 97.9 Laboratory Laboratory Laboratory Tests Test 04/09/18 20:10 04/10/18 07:39 04/10/18 08:09 04/10/18 08:45 Glucose (Fingerstick) 174 mg/dL (70-99) 53 mg/dL (70-99) 101 mg/dL (70-99) Sodium Level 141 mmol/L (136-145) Potassium Level 3.9 mmol/L (3.5-5.1) Chloride Level 105 mmol/L (98-107) Carbon Dioxide Level 27 mmol/L (21-32) Anion Gap 9 (6-14) Blood Urea Nitrogen 15 mg/dL (8-26) Creatinine 1.4 mg/dL (0.7-1.3) Estimated GFR (Cockcroft-Gault) 60.1 Glucose Level 89 mg/dL (70-99) Calcium Level 9.0 mg/dL (8.5-10.1) Test 04/10/18 11:26 Glucose (Fingerstick) 190 mg/dL (70-99) Medication Medications Current Medications Atorvastatin Calcium (Lipitor) 20 mg QHS PO Last administered on 04/09/18at 21: 14; Start 04/09/18 at 21:00 Cetirizine HCl (ZyrTEC) 10 mg DAILY PRN PO ALLERGIES; Start 04/10/18 at 09:00 Insulin Glargine (Lantus) 14 units QHS SQ Last administered on 04/09/18at 21:24 ; Start 04/09/18 at 21:00 Non-Formulary Medication (Dulaglutide (Trulicity)) 0.75 mg QSU SQ ; Start 04/12 at 16:00; Status UNV Non-Formulary Medication (Hypromellose (Isopto Tears)) 15 ml BID OP ; Start at 21:00; Status UNV Polyethylene Glycol (miraLAX PACKET) 17 gm PRN DAILY PRN PO CONSTIPATION; Start 04/10/18 at 09:00 Quetiapine Fumarate (SEROquel) 25 mg HS PO ; Start 04/10/18 at 21:00 Comment Review of Relevant I have reviewed the following items radha (where applicable) has been applied. DEVYN JEFFERS MD Apr 10, 2018 16:07
[2018-04-10 16:17] LABS: ANA INTERP Negative (.)
[2018-04-10] MEDS ORDERED: INSULIN LISPRO 300 UNITS/3 ML INSULN.PEN. SQ ONE (18:00)
[2018-04-10] MEDS ORDERED: DEXTROSE 50% 25 GM / 50ML DISP.SYRIN. IV PRN (18:00)
[2018-04-10 19:00] VITALS: BP 126/47
[2018-04-10] MEDS: INSULIN GLARGINE 300 UNITS/3 ML INSULN.PEN. SQ SCH (21:00)
[2018-04-10] MEDS ORDERED: QUEtiapine 25 MG TABLET. PO SCH (21:00)
[2018-04-10] MEDS: ATORVASTATIN CALCIUM 20 MG TABLET PO SCH (21:10)
[2018-04-10] MEDS: ENOXAPARIN 40 MG/0.4 ML SYRINGE. SQ SCH (21:10)
[2018-04-10 23:00] VITALS: BP 132/72
[2018-04-11 03:00] VITALS: BP 147/82
[2018-04-11 07:00] VITALS: BP 140/84
[2018-04-11] MEDS: INSULIN LISPRO 300 UNITS/3 ML INSULN.PEN. SQ SCH ×4 (08:00→12:00)
--- NOTE | 2018-04-11 08:33 | DISCH ---
DISCHARGE WITH HOME HEALTH DISCHARGE INFORMATION: Discharge Date: Apr 11, 2018 Final Diagnosis: Problems Medical Problems: (1) Dementia Status: Acute (2) Hyperglycemia Status: Acute (3) Renal failure Status: Acute Condition on Discharge: Stable CODE STATUS: Code Status: Full HOME HEALTH: Face to Face: I certify this patient is under my care and that I, or a nurse practitioner or physician's speech therapy assistant working with me, had a face to face encounter that meets the physician face to face encounter requirements with this patient on []. Medical Complications: Dementia Physical Therapy For: Evalulation/Treatment Occupational Therapy For: Evaluation/Treatment Speech Language Pathology For: Swallow Cognition Home Health Aide For: Self-care BARGE CAPTAIN For: Community Resources POST DISCHARGE ORDERS: Activity Instructions for Disc: Activity as tolerated Weight Bearing Status after Di: As tolerated DIET AFTER DISCHARGE: Regular CHECKS AFTER DISCHARGE: Checks after discharge: Check blood press - daily TREATMENT/EQUIPMENT ORDERS: Adaptive Equipment Issued: Four wheeled walker CERTIFICATION STATEMENT: Certification Statement: Certification Statement: Based on the above finding, I certify that this patient is confined to the home and needs intermittent correction care, physical therapy and/or speech therapy, or continues to need occupational therapy.~ This patient is under my care, and I have initiated the establishment of the plan of care.~ This patient will be followed by myself or a community physician who will periodically review the plan of care. Home Meds Reported Medications Cholecalciferol (Vitamin D3) (VITAMIN D3) 1,000 Unit Tablet, 1 TAB PO DAILY, # 30 TAB 5 Refills 04/08/18 Hypromellose (ISOPTO TEARS) 15 Ml Drops, 15 ML OP BID, DROP 04/08/18 Carboxymethylcellulos/Glycerin (REFRESH OPTIVE EYE DROPS) 15 Ml Drops, 1 DROP EACHEYE BID, #30 ML 6 Refills 04/08/18 Dulaglutide (Trulicity) 0.75 Mg/0.5 Ml Pen.injctr, 0.75 MG SQ QSU, EACH 04/08/18 Insulin Detemir (Levemir Flextouch) 100 Unit/1 Ml Insuln.pen, 14 UNIT SQ HS, SYR 04/08/18 Docusate Sodium (DOCUSATE SODIUM) 100 Mg Capsule, 1 CAP PO BID, #14 CAP 04/08/18 Atorvastatin Calcium (ATORVASTATIN CALCIUM) 20 Mg Tablet, 1 TAB PO DAILY, #30 TAB 5 Refills 10/24/18 Amlodipine Besylate (AMLODIPINE BESYLATE) 10 Mg Tablet, 10 MG PO DAILY, TAB 04/08/18 Memantine Hcl (NAMENDA) 10 Mg Tablet, 0.5 TAB PO BID, #180 TAB 1 Refill 04/08/18 Donepezil Hcl (DONEPEZIL HCL) 10 Mg Tablet, 1 TAB PO DAILY, #90 TAB 1 Refill 04/08/18 Aspirin (ASPIRIN EC) 81 Mg Tablet.dr, 1 TAB PO DAILY, #30 TAB 3 Refills 04/08/18 Loratadine (LORATADINE) 10 Mg Tablet, 1 TAB PO DAILY PRN for ALLERGIES, #30 TAB 5 Refills 04/08/18 Polyethylene Glycol 3350 (MIRALAX) 17 Gm Powd.pack, 1 PACKET PO DAILY PRN for CONSTIPATION, #30 PACKET 3 Refills 04/08/18 JESSICA ESQUIVEL MD Apr 11, 2018 08:33
[2018-04-11] MEDS: CHOLECALCIFEROL (VITAMIN D3) 1,000 UNIT TABLET PO SCH (08:34)
[2018-04-11] MEDS: MEMANTINE 5 MG TABLET. PO SCH (08:34)
[2018-04-11] MEDS: ASPIRIN 325 MG TABLET PO SCH (08:34)
[2018-04-11] MEDS: POLYVINYL ALCOHOL 1.4% OPHTH SOLUTION 15ML BOTTLE. OU SCH (08:35)
[2018-04-11] MEDS: DONEPEZIL HCL 10 MG TABLET. PO SCH (08:35)
[2018-04-11] MEDS: amLODIPine BESYLATE 10 MG TABLET PO SCH (08:35)
[2018-04-11] MEDS: DOCUSATE SODIUM 100 MG CAPSULE. PO SCH (08:36)
[2018-04-11] MEDS: ASPIRIN ENTERIC COATED 81 MG TABLET.DR. PO SCH (08:40)
--- NOTE | 2018-04-11 10:13 | PDOC3 ---
Discharge Summary Visit Information Date of Admission: Apr 07, 2018 Date of Discharge: Apr 11, 2018 Admitting Diagnosis Comment: 1. advanced dementia 2. uncontrolled diabetes, unsure of duration of dx 3. high fall risk 4. gait instability 5, severe self care deficits 6. acute renal failure 7. uncontrolled hypertension 8. abnormal weight loss of 100# in 12 months by SO hx in room today 9. dehydration Final Diagnosis Problems Medical Problems: (1) Dementia Status: Acute (2) Hyperglycemia Status: Acute (3) Renal failure Status: Acute Brief Hospital Course Allergies Allergies Coded Allergies Type Severity Reaction Last Updated Verified lisinopril Allergy Mild 04/07/18 Yes Vital Signs Vital Signs Date Time Temp Pulse Resp B/P (MAP) Pulse Ox O2 Delivery O2 Flow Rate FiO2 04/11/18 08:35 61 147/82 04/11/18 03:00 98.3 18 100 Room Air 98.3 Lab Results Laboratory Tests Test 04/09/18 11:24 04/09/18 15:58 04/09/18 20:10 04/10/18 07:39 Glucose (Fingerstick) 130 mg/dL (70-99) 193 mg/dL (70-99) 174 mg/dL (70-99) 53 mg/dL (70-99) Test 04/10/18 08:09 04/10/18 08:45 04/10/18 11:26 04/10/18 17:29 Glucose (Fingerstick) 101 mg/dL (70-99) 190 mg/dL (70-99) 353 mg/dL (70-99) Sodium Level 141 mmol/L (136-145) Potassium Level 3.9 mmol/L (3.5-5.1) Chloride Level 105 mmol/L (98-107) Carbon Dioxide Level 27 mmol/L (21-32) Anion Gap 9 (6-14) Blood Urea Nitrogen 15 mg/dL (8-26) Creatinine 1.4 mg/dL (0.7-1.3) Estimated GFR (Cockcroft-Gault) 60.1 Glucose Level 89 mg/dL (70-99) Calcium Level 9.0 mg/dL (8.5-10.1) Test 04/10/18 20:52 04/11/18 02:57 04/11/18 08:09 Glucose (Fingerstick) 74 mg/dL (70-99) 115 mg/dL (70-99) 147 mg/dL (70-99) Laboratory Tests Test 04/10/18 11:26 04/10/18 17:29 04/10/18 20:52 04/11/18 02:57 Glucose (Fingerstick) 190 mg/dL (70-99) 353 mg/dL (70-99) 74 mg/dL (70-99) 115 mg/dL (70-99) Test 04/11/18 08:09 Glucose (Fingerstick) 147 mg/dL (70-99) Brief Hospital Course Mr. Story is a 72 old -[place]iqu[place] male who came from home with dementia history on Aricept, came in because of more altered mental status and hyperglycemia and AK I. We have fixed hyperglycemia and AK I. No change in meds , to continue dementia meds, aricept etc. Home health is being arranged. COnsults: Proc; None FULL Code NO change in meds Seen and examined dc < 30 mins Discharge Information Condition at Discharge: Improved, Stable Disposition/Orders: D/C to Home w/ HH Scheduled Amlodipine Besylate (Amlodipine Besylate) 10 Mg Tablet, 10 MG PO DAILY, ( Reported) Entered as Reported by: LISE HU on 04/08/181239 Last Action: Continued on 04/09/181046 by CINDY RUSSELL MD Aspirin (Aspirin Ec) 81 Mg Tablet.dr, 1 TAB PO DAILY, #30 Ref 3 (Reported) Entered as Reported by: LISE HU on 04/08/181239 Last Action: Continued on 04/09/181046 by CINDY RUSSELL MD Atorvastatin Calcium (Atorvastatin Calcium) 20 Mg Tablet, 1 TAB PO DAILY, #30 Ref 5 (Reported) Entered as Reported by: LISE HU on 04/08/181239 Last Action: Continued on 04/09/181046 by CINDY RUSSELL MD Carboxymethylcellulos/Glycerin (Refresh Optive Eye Drops) 15 Ml Drops, 1 DROP EACHEYE BID, #30 Ref 6 (Reported) Entered as Reported by: LISE HU on 04/08/181239 Last Action: Converted on 04/09/181046 by CINDY RUSSELL MD Cholecalciferol (Vitamin D3) (Vitamin D3) 1,000 Unit Tablet, 1 TAB PO DAILY, # 30 Ref 5 (Reported) Entered as Reported by: LISE HU on 04/08/181239 Last Action: Continued on 04/09/181046 by CINDY RUSSELL MD Docusate Sodium (Docusate Sodium) 100 Mg Capsule, 1 CAP PO BID, #14 (Reported) Entered as Reported by: LISE HU on 04/08/181239 Last Action: Continued on 04/09/181046 by CINDY RUSSELL MD Donepezil Hcl (Donepezil Hcl) 10 Mg Tablet, 1 TAB PO DAILY, #90 Ref 1 (Reported) Entered as Reported by: LISE HU on 04/08/181239 Last Action: Converted on 04/09/181046 by CINDY RUSSELL MD Dulaglutide (Trulicity) 0.75 Mg/0.5 Ml Pen.injctr, 0.75 MG SQ QSU, (Reported) Entered as Reported by: LISE HU on 04/08/181239 Last Action: Converted on 04/09/181046 by CINDY RUSSELL MD Hypromellose (Isopto Tears) 15 Ml Drops, 15 ML OP BID, (Reported) Entered as Reported by: LISE HU on 04/08/181239 Last Action: Converted on 04/09/181046 by CINDY RUSSELL MD Insulin Detemir (Levemir Flextouch) 100 Unit/1 Ml Insuln.pen, 14 UNIT SQ HS, ( Reported) Entered as Reported by: LISE HU on 04/08/181239 Last Action: Converted on 04/09/181046 by CINDY RUSSELL MD Memantine Hcl (Namenda) 10 Mg Tablet, 0.5 TAB PO BID, #180 Ref 1 (Reported) Entered as Reported by: LISE HU on 04/08/181239 Last Action: Converted on 04/09/181046 by CINDY RUSSELL MD Scheduled PRN Loratadine (Loratadine) 10 Mg Tablet, 1 TAB PO DAILY PRN for ALLERGIES, #30 Ref 5 (Reported) Entered as Reported by: LISE HU on 04/08/181239 Last Action: Converted on 04/09/181046 by CINDY RUSSELL MD Polyethylene Glycol 3350 (Miralax) 17 Gm Powd.pack, 1 PACKET PO DAILY PRN for CONSTIPATION, #30 Ref 3 (Reported) Entered as Reported by: LISE HU on 04/08/18 1240 Last Action: Converted on 04/09/181046 by MD ALVIN BRANCH CHERRIE Y MD Apr 11, 2018 10:13
[2018-04-11 11:00] VITALS: BP 132/67
--- NOTE | 2018-04-11 15:58 | PDOC ---
PROGRESS NOTES Assessment Assessment Metabolic encephalopathy. Lethargy. Hyperglycemia, glucose level 475. Acute renal failure. DM, poorly controlled. HTN. HLD. Dementia. RECOMMENDATIONS/PLAN: Control hyperglycemia. Treat medical diseases. Consulted Nephrology. OT/PT. FU with PCP. HCT: No acute findings. EEG on 04/08/18: Encephalopathy. HISTORY OF THE PRESENT ILLNESS: 72-y-old AA male patient with above medical diseases was noted mental status changes by his family and career development counselor, so EMS was called and he was revealed hyperglycemia to brought to the ER of [facility]. His glucose level was 475. No focalized sensory or motor deficits noted. His mental status improved on 04/09/18. Lethargy resolved on 04/10/18. Past Medical History Cardiovascular: HTN, Hyperlipidemia CENTRAL NERVOUS SYSTEM: Dementia GI: Constipation Renal/: No pertinent hx Endocrine: Diabetes Family History Hypertension PAST SURGERY HISTORY: Tonsillectomy, Appendectomy. ALLERGY: Lisinopril. MEDICATIONS: Refer to [facility] SOCIAL HISTORY: Lives at home. Denies smoking, drinking, and illicit drug use. REVIEW OF SYSTEMS: Constitutional: No malnutrition, weight loss, cachexia. Head: No traumatic brain or head injury. Skin: No edema, or rash. Ear: No infection Eyes: No vision loss or color blindness. Nose: No bleeding or purulent discharges. Hearing: No hearing decrease. Neck: No recent injury. Cardiac: HTN, HLD. Pulmonary: No COPD. GI: No GI ulcer, GI bleeding. Urinary/genital: UTI. Endocrinologic: Diabetes Mellitus. Skeletomuscular: Generalized weakness. Neurological: see HP. Psychiatric: Denies drug use/abuse. Otherwise, not [id number] review of systems. PHYSICAL EXAMINATION: General appearance is in no acute distress. HEENT: Normocephalic and nontraumatic. Eyes, nose, ears, and throat are unremarkable. Neck is supple. No lymphadenopathy. No crepitus. Cardiovascular: S1, S2, regular rate and rhythm. Pulmonary: Clear to auscultation bilaterally. Abdomen: Bowel sounds are positive. Extremities: No rash, lesions, or edema. No restriction of range of motion NEUROLOGICAL EXAMINATION: Awake. Able to understand some questions. Not fully oriented to time, but knew place and person. PERRL. EOMI. CN: no focal findings. Muscle tone: within normal. Muscle strength: 4+ DTR: 2 UE, 1+ at knee. Plantar reflex: Neutral response bilaterally Gait: not examined in chair. Sensory exam: no abnormal findings. Not acute cerebellar signs elicited. F-T-N test fine.. Objective Objective Vital Signs Date Time Temp Pulse Resp B/P (MAP) Pulse Ox O2 Delivery O2 Flow Rate FiO2 04/11/18 11:00 98.3 64 16 132/67 (88) 100 Room Air 98.3 Intake and Output 04/11/18 07:00 Intake Total 420 ml Balance 420 ml Intake Oral 420 ml # Voids 4 # Bowel Movements 2 Vitals Signs Vitals VS - Last 72 Hours, by Label Date Time Temp Pulse Resp B/P (MAP) Pulse Ox O2 Delivery O2 Flow Rate FiO2 04/11/18 11:00 98.3 64 16 132/67 (88) 100 Room Air 98.3 04/11/18 08:35 61 147/82 04/11/18 08:00 Room Air 04/11/18 07:00 98.3 65 16 140/84 (102) 100 Room Air 98.3 04/11/18 03:00 98.3 61 18 147/82 (103) 100 Room Air 98.3 04/10/18 23:00 97.7 78 18 132/72 (92) 100 Room Air 97.7 04/10/18 20:00 Room Air 04/10/18 19:00 97.7 65 18 126/47 (73) 100 Room Air 97.7 04/10/18 15:00 97.6 65 16 130/67 (88) 100 Room Air 97.6 04/10/18 11:00 97.7 68 20 114/68 (83) 99 Room Air 97.7 04/10/18 07:55 56 113/61 04/10/18 07:00 98.1 56 19 113/61 (78) 100 Room Air 98.1 Laboratory Laboratory Laboratory Tests Test 04/10/18 17:29 04/10/18 20:52 04/11/18 02:57 04/11/18 08:09 Glucose (Fingerstick) 353 mg/dL (70-99) 74 mg/dL (70-99) 115 mg/dL (70-99) 147 mg/dL (70-99) Test 04/11/18 11:23 Glucose (Fingerstick) 219 mg/dL (70-99) Medication Medications Current Medications Dextrose (Dextrose 50%-Water Syringe) 12.5 gm PRN Q15MIN PRN IV SEE COMMENTS; Start 04/10/18 at 18:00; Stop 04/11/18 at 15:51; Status DC Insulin Human Lispro (HumaLOG) 0-9 UNITS TIDWMEALS SQ ; Start 04/10/18 at 18:00 ; Stop 04/11/18 at 15:51; Status DC Insulin Human Lispro (HumaLOG) 10 units 1X ONCE SQ Last administered on at 18:12; Start 04/10/18 at 18:00; Stop 04/10/18 at 18:01; Status DC Non-Formulary Medication (Dulaglutide (Trulicity)) 0.75 mg QSU SQ ; Start 04/12 at 16:00; Status UNV Quetiapine Fumarate (SEROquel) 25 mg HS PO Last administered on 04/10/18at 21: 10; Start 04/10/18 at 21:00; Stop 04/11/18 at 15:51; Status DC Comment Review of Relevant I have reviewed the following items radha (where applicable) has been applied. DEVYN JEFFERS MD Apr 11, 2018 15:58
[2018-04-12] MEDS ORDERED: NON FORMULARY ITEM (Dulaglutide (Trulicity) 0.75 MG) SQ SCH (16:00)
== END 2018-04-11 15:50 | disposition home health service (06) | DRG 682 ==
LOC: ER 17:00 → 5 NORTH 18:00
PROVIDERS: ADMIT Family Medicine; ATTEND Family Medicine
DX: N17.9 Acute kidney failure, unspecified (principal); G93.41 Metabolic encephalopathy; E11.65 Type 2 diabetes mellitus with hyperglycemia; F03.90 Unspecified dementia, unspecified severity, without behavioral disturbance, psychotic disturbance, mood disturbance, and anxiety; E78.5 Hyperlipidemia, unspecified; I10 Essential (primary) hypertension; E86.0 Dehydration; R63.4 Abnormal weight loss; R26.9 Unspecified abnormalities of gait and mobility; Z91.81 History of falling; Z68.21 Body mass index [BMI] 21.0-21.9, adult; Z88.8 Allergy status to other drugs, medicaments and biological substances; Z82.49 Family history of ischemic heart disease and other diseases of the circulatory system; Z90.49 Acquired absence of other specified parts of digestive tract
CPT/HCPCS: 36415; 70450; 71045; 80048; 80053; 80061; 80069; 80307; 81001; 82010; 82306; 82607; 82962; 83036; 83880; 84439; 84443; 84484; 85025; 86038; 93005; 95816; J1650; J1815; J7030; J7042; 99285-25; G0479